=== PATIENT | female | born 1935 | race Caucasian/White ===

== ENCOUNTER 2018-02-28 04:33 | Inpatient (IN) | payer OTHER ==
[2018-02-28] VITALS (7 sets, daily range): BP systolic 139–168; BP diastolic 61–87
[~2018-02-28] VITALS: Ht 147.3 cm; Wt 66.7 kg
[~2018-02-28 04:33] MED LIST: ASPIRIN325 PO; AUGMENTIN 875875 MG PO; B12INJ SUBQ; CIPRO500 MG PO; FLAGYL500 MG PO; HYDROCODONE-AP1 EAC6 PO; LIPITOR10 MG PO; LISINOPRIL10 MG PO; MINOCYCLINE HC100 M2 PO; OMEPRAZOLE 20 M20 M1; OMEPRAZOLE20 M2 PO; PERIDEX15 ML MM; PRENATAL PO; SYNTHROID100 MC1 PO; TOPROL XL50 MG PO; ZOFRAN ODT4 MG PO; [UNRECOGNIZED DRUG - REMARK]
[2018-02-28 04:58] LABS: ABSOLUTE BASOPHILS 0.1 thou/uL (0.0-0.2); ABSOLUTE EOSINOPHILS 0.3 thou/uL (0.0-0.7); ABSOLUTE LYMPHOCYTES 2.4 thou/uL (0.8-5.3); ABSOLUTE MONOCYTES 0.6 thou/uL (0.0-1.2); ABSOLUTE NEUTROPHILS 3.2 thou/uL (1.6-8.1); BASOPHILS 1.2 %; HEMATOCRIT 40.7 % (37.0-47.0); HEMOGLOBIN 13.6 gm/dL (12.0-15.0); MCH 30.3 pg (26.0-34.0); MCHC 33.5 g/dL (28.0-37.0); MCV 90.4 fL (80.0-100.0); MONOCYTES 9.4 %; MPV 7.9 fl. (7.2-11.1); NUCLEATED RBCS 0 /100WBC; PLATELET COUNT* 196 thou/uL (150-400); POLYS 48.4 %; RDW-CV 14.4 % (10.5-14.5); WBC 6.6 thou/uL (4.0-11.0)
[2018-02-28 05:09] LABS: ANION GAP 9 mmol/L (7-16); BUN 20 mg/dL (7-18); CALCIUM 8.5 mg/dL (8.5-10.1); CHLORIDE 107 mmol/L (98-107); CO2 25 mmol/L (21-32); CREATININE 1.2 mg/dL (0.6-1.3); GLUCOSE 113 mg/dL (70-99); POTASSIUM 3.2 mmol/L (3.5-5.1); SODIUM 141 mmol/L (136-145)
[2018-02-28 05:10] LABS: INR 1.1; PROTIME 10.6 Seconds (9.20-11.50)
[2018-02-28] MEDS ORDERED: HYDROCHLOROTH12.5 M1 PO (05:10)
[2018-02-28 05:23] LABS: ALBUMIN 2.8 g/dL (3.4-5.0); ALKALINE PHOSPHATASE 110 U/L (46-116); LIPASE 196 U/L (73-393); NT-PRO BRAIN NAT PEPTIDE 238 pg/mL (<300); SGOT 17 U/L (15-37); SGPT 16 U/L (30-65); TOTAL BILIRUBIN 0.6 mg/dL (<0.1-1.0); TOTAL PROTEIN 6.9 g/dL (6.4-8.2); TROPONIN-I LEVEL <0.06 ng/mL (<0.06)
--- NOTE | 2018-02-28 07:00 | NUR ---
RECEIVED REPORT FROM ER, AMBULATED WITH STEADY GAIT FROM CART TO BED. PT VERY PLEASANT AND TALKATIVE. DENIES CHEST PAIN AT PRESENT TIME. O2 ON AT 2L/NC. TELEMETRY APPLIED.
--- NOTE | 2018-02-28 11:08 | NUR ---
ASSUMED PT CARE AT 0730, FULL ASSESMENT DONE CHARTED. PT A/O X4, DENIES PAIN, UP AD SUZY IN ROOM, VSS, SB ON THE MONITOR. ADMISSION DONE, REVIEWED HOME MEDS. PT SPOKE TO FARRUKH DOWNEY PLANNED FOR THIS AFTERNOON. PT UPDATED ON PLAN, NPO AT THIS TIME. WILL CONTINUE TO MONITOR.
[2018-02-28 11:24] LABS: ANION GAP 9 mmol/L (7-16); BUN 17 mg/dL (7-18); CHLORIDE 111 mmol/L (98-107); CHOLESTEROL 167 mg/dL (<200); CO2 23 mmol/L (21-32); CREATININE 0.9 mg/dL (0.6-1.3); GLUCOSE 94 mg/dL (70-99); HDL CHOLESTEROL 38 mg/dL (>40); LDL CHOLESTEROL 114 mg/dL (<100); POTASSIUM 3.8 mmol/L (3.5-5.1); SODIUM 143 mmol/L (136-145); TC:HDL 4.4 Ratio (Not establshd); TRIGLYCERIDE 76 mg/dL (<150); VLDL 15 mg/dL (<40)
[2018-02-28 11:33] LABS: SERUM ASSESSMENT Clear
--- NOTE | 2018-02-28 13:20 | NUR ---
INITIAL ASSESSMENT: Pt evaluated for d/c planning needs. Reviewed chart and spoke with nurse and pt. Pt is alert and oriented. Pt lives in house with adult daughter. 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 Pt has walker, w/c and crutches, but does not use. Pt has not had home health in the past. Pt plans on returning home on d/c from hospital. Will remain available to assist as needed.
--- NOTE | 2018-02-28 15:11 | 2DMMODE ---
[place] [address] 2 D/M-MODE ECHOCARDIOGRAM Name: DARY DE JESUS Room: [address] IN [facility]#: [id number] Admission: 02/28/18 Attend Phys: Chantell Ross, Discharge: Date of : 35 Date of Service: 02/28/18 1511 Report #: [id number] THIS REPORT FOR: //name// APPROVED REPORT Study performed: 02/28/2018 09:44:22 EXAM: Comprehensive 2D, Doppler, and color-flow Echocardiogram Patient Location: In-Patient Room #: [facility] Status: routine BSA: 1.62 HR: 55 bpm BP: 139/61 mmHg Rhythm: NSR Other Information Study Quality: Good Indications Murmur Chest Pain 2D Dimensions LVEF(%): 79.99 (>50%) IVSd: 10.37 (7-11mm) LVOT Diam: 18.31 (18-24mm) LVDd: 40.40 mm PWd: 9.06 (7-11mm) Ascending Ao: 29.85 (22-36mm) LVDs: 20.96 (25-40mm) Aortic Root: 30.11 mm Tapia's LVEF: 79.99 % Volumes Left Atrial Volume (Systole) LA ESV Index: 25.40 mL/m2 Aortic Valve AoV Peak Artis.: 1.63 m/s AO Peak Gr.: 10.57 mmHg LVOT Max P.90 mmHg AO Mean Gr.: 5.66 mmHg LVOT Mean P.47 mmHg LVOT Max V: 1.21 m/s AO V2 VTI: 40.06 cm LVOT Mean V: 0.70 m/s MELANI (VTI): 2.01 cm2 LVOT V1 VTI: 30.52 [place] [address] 2 D/M-MODE ECHOCARDIOGRAM Name: DARY DE JESUS Room: [address] IN [facility].#: [id number] Admission: 02/28/18 Attend Phys: Chantell Ross, Discharge: Date of : 35 Date of Service: 02/28/18 1511 Report #: [id number] E/A Ratio: 1.17 MV Decel. Time: 242.42 ms MV E Max Artis.: 0.95 m/s MV PHT: 70.30 ms MVA (PHT): 3.13 cm2 TDI E/Lateral E': 13.57 E/Medial E': 13.57 Medial E' Artis.: 0.07 m/s Lateral E' Artis.: 0.07 m/s Pulmonary Valve PV Peak Artis.: 1.00 m/s PV Peak Gr.: 4.02 mmHg Tricuspid Valve RAP Estimate: 5.00 mmHg TR Peak Gr.: 23.50 mmHg RVSP: 28.50 mmHg PA Pressure: 28.50 mmHg Left Ventricle The left ventricle is normal size. There is normal LV segmental wall motion. There is normal left ventricular wall thickness. Left ventricular systolic function is normal. The left ventricular ejection fraction is within the normal range. LVEF is 65%. The left ventricular diastolic function is normal. Right Ventricle The right ventricle is normal size. The right ventricular systolic function is normal. Atria The left atrium size is normal. The right atrium size is normal. Aortic Valve Mild aortic valve sclerosis. No aortic regurgitation is present. There is no aortic valvular stenosis. Mitral Valve The mitral valve is normal in structure. Mild mitral regurgitation. No evidence of mitral valve stenosis. Tricuspid Valve The tricuspid valve is normal in structure. Mild tricuspid regurgitation. [place] [address] 2 D/M-MODE ECHOCARDIOGRAM Name: DARY DE JESUS Room: [address] IN [facility]#: [id number] Admission: 02/28/18 Attend Phys: Chantell Ross, Discharge: Date of : 35 Date of Service: 02/28/18 1511 Report #: [id number] Pulmonic Valve The pulmonary valve is normal in structure. Trace pulmonic regurgitation. Great Vessels The aortic root is normal in size. IVC is normal in size and collapses with >50% inspiration Pericardium There is no pericardial effusion. <Conclusion> The left ventricle is normal size. There is normal left ventricular wall thickness. Left ventricular systolic function is normal. The left ventricular ejection fraction is within the normal range. LVEF is 65%. The left ventricular diastolic function is normal. The right ventricle is normal size. The left atrium size is normal. Mild aortic valve sclerosis. No aortic regurgitation is present. There is no aortic valvular stenosis. The mitral valve is normal in structure. Mild mitral regurgitation. The tricuspid valve is normal in structure. Mild tricuspid regurgitation. No pulmonary hypertension. IVC is normal in size and collapses with >50% inspiration There is no pericardial effusion. There is normal LV segmental wall motion. <ELECTRONICALLY SIGNED> By: Veto Alvarez MD, FACC 02/28/18 1511 151 151 Veto Alvarez MD, FACC /INF
--- NOTE | 2018-02-28 17:28 | EKG ---
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 : 1935 Requested By: Mark Conner Order Number: [id number] MD: John Renee Measurements Intervals [place] Rate: 134 P: DE: QRS: 13 QRSD: 93 T: -40 QT: 318 QTc: 475 Interpretive Statements Atrial fibrillation Abnormal R-wave progression, early transition Repolarization abnormality, consider ischemia Compared to ECG 12/13/2015 15:31:57 Early repolarization now present Sinus rhythm no longer present Electronically Signed On 02-28-2018 17:28:03 CDT by John Renee [email or web address] <ELECTRONICALLY SIGNED> By: John Renee MD, FACC 02/28/18 1728 0439 0439 John Renee MD, [facility] /EPI
--- NOTE | 2018-02-28 17:28 | EKG ---
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: : 1935 Requested By: Mark Conner Order Number: [id number] MD: John Renee Measurements Intervals [place] Rate: 65 P: 44 [place]: 159 QRS: -16 QRSD: 103 T: -3 QT: 428 QTc: 445 Interpretive Statements Sinus rhythm Atrial premature complex Abnormal R-wave progression, early transition Inferior infarct, old Compared to ECG 12/13/2015 15:31:57 Atrial premature complex(es) now present Myocardial infarct finding now present Electronically Signed On 02-28-2018 17:28:11 CDT by John Renee [email or web address] <ELECTRONICALLY SIGNED> By: John Renee MD, FAC 02/28/18 1728 0502 0502 John Renee MD, [facility] /EPI
--- NOTE | 2018-02-28 19:43 | NUR ---
UNABLE TO DO CARDIAC CATH TODAY, PT WILL BE NPO AFTER MIDNIGHT TONIGHT FOR CATH TOMORROW. REVIEWED PLAN WITH PT, ANSWERED QUESTIONS. PTS VSS, SB-SR ON THE MONITOR. USES CALL LIGHT APPROPRIALTY. UP AD SUZY IN ROOM. REPORT GIVEN TO AUDELIA SANDERS
[2018-03-01] VITALS (15 sets, daily range): BP systolic 144–187; BP diastolic 67–86
--- NOTE | 2018-03-01 05:54 | NUR ---
RECEIVED REPORT AND ASSUMED CARE AT 1900. VSS. CARDIAC MONITORING IN PLACE. ASSESSMENT COMPLETED CHARTED. PT DENIES ANY COMPLAINTS OF PAIN. DISCUSSED PLAN OF CARE WITH PT, VERBALIZED UNDERSTANDING. PT TO BE NPO AFTER MIDNIGHT FOR CATH PROCEEDURE. PT UP AD SUZY IN ROOM, ON RA. PT REPORTED PRESSURE IN HER CHEST, EKG OBTAINED. PT ROOM WAS VERY WARM AND HUMID. THERMOSTAT CHANGED, PT REPORTED PRESSURE IN CHEST GONE WITH CHANGE IN TEMP. BED LOCKED IN LOWEST POSITION, CALL LIGHT WITHIN REACH. HOURLY ROUNDING COMPLETED AND ALL NEEDS MET. WILL CONTINUE TO MONITOR
[2018-03-01 06:13] LABS: CALCIUM 8.5 mg/dL (8.5-10.1); CREATININE 1.1 mg/dL (0.6-1.3); POTASSIUM 4.7 mmol/L (3.5-5.1)
--- NOTE | 2018-03-01 17:30 | EKG ---
[place] [address] ELECTROCARDIOGRAM REPORT Name: DARY DE JESUS Room: [address] ADM IN .R.#: [id number] Admission: 02/28/18 Attend Phys: Chantell Ross MD Discharge: Date of : 35 Report #: [id number] THIS REPORT FOR: //name// [facility] Test Date: 2018-02-28 Test Time: 23:17:26 Pat Name: DARY DE JESUS Department: Room: [address] Gender: F Wire Weaver: : 1935 Requested By: Chantell Ross Order Number: [id number] Reading MD: Veto Alvarez Measurements Intervals [place] Rate: 78 P: 45 [place]: 183 QRS: -1 QRSD: 83 T: 4 QT: 410 QTc: 468 Interpretive Statements Sinus rhythm Abnormal R-wave progression, early transition Nonspecific T abnormalities, anterior leads Compared to ECG 02/28/2018 05:02:29 T-wave abnormality now present Atrial premature complex(es) no longer present Myocardial infarct finding no longer present Electronically Signed On 03-01-2018 17:30:50 CDT by Veot Alvarez [email or web address] <ELECTRONICALLY SIGNED> By: Veto Alvarez MD, [facility] 03/01/18 1730 2317 2317 Veto Alvarez MD, [facility] /EPI
--- NOTE | 2018-03-01 17:30 | EKG ---
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: : 1935 Requested By: Chantell Ross Order Number: [id number] Reading MD: Veto Alvarez Measurements Intervals [place] Rate: 76 P: 50 [place]: 186 QRS: 9 QRSD: 76 T: 9 QT: 404 QTc: 455 Interpretive Statements Sinus rhythm Abnormal R-wave progression, early transition Nonspecific T abnormalities, anterior leads Compared to ECG 02/28/2018 05:02:29 T-wave abnormality now present Atrial premature complex(es) no longer present Myocardial infarct finding no longer present Electronically Signed On 03-01-2018 17:30:42 CDT by Veto Alvarez [email or web address] <ELECTRONICALLY SIGNED> By: Veto Alvarez MD, [facility] 03/01/18 1730 2314 2314 Veto Alvarez MD, [facility] /EPI
--- NOTE | 2018-03-01 17:40 | EKG ---
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: : 1935 Requested By: Veto Alvarez Order Number: [id number] Reading MD: Veto Alvarez Measurements Intervals [place] Rate: 48 P: -3 [place]: 146 QRS: 1 QRSD: 165 T: 10 QT: 506 QTc: 453 Interpretive Statements Sinus bradycardia Probable left ventricular hypertrophy Compared to ECG 02/28/2018 05:02:29 Sinus rate has decreased Atrial premature complex(es) no longer present Myocardial infarct finding no longer present Electronically Signed On 03-01-2018 17:40:35 CDT by Veto Alvarez [email or web address] <ELECTRONICALLY SIGNED> By: Veto Alvarez MD, [facility] 03/01/18 1740 1429 1429 Veto Alvarez MD, [facility] /EPI
--- NOTE | 2018-03-01 18:45 | NUR ---
ASSUMED CARE OF PT AT 0730. PT REMAINS A&O CALM AND COOPERATIVE. PT VSS AND TRACING SB ON THE MONITOR. PT HAS HAD NO C/O PAIN TODAY. PT TAKEN TO THE SENIOR SOFTWARE ENGINEERING MANAGER AND RETURNED AT 1515 AND HAS BEEN STABLE WITHOUT ANY S/S OF DISTRESS. PT VERBALIZED UNDERSTANDING OF DC INSTRUCTIONS AND THAT SHE IS TO REMAIN FLAT UNTIL AT LEAST 2015 TONIGHT. PT HAS A GOOD APPETITE AND ATE GREATER THAN 75% OF HER DINNER. POST CATH VITALS WERE OBTAINED AND DOCUMENTED. NURSING WILL CONTINUE TO MONITOR.
[2018-03-02] VITALS: BP 178/67
[2018-03-02 04:00] VITALS: BP 136/50
--- NOTE | 2018-03-02 05:38 | NUR ---
RECEIVED REPORT AND ASSUMED CARE AT 1900. BP ELEVATED, OTHERWISE VSS. CARDIAC MONITORING IN PLACE. ASSESSMENT COMPLETED CHARTED. PT DENIES ANY COMPLAINTS OF PAIN. DISCUSSED PLAN OF CARE WITH PT, VERBALIZED UNDERSTANDING. PT POST CATH, BEDREST UNTIL 2014. SITE R GROIN, SOFT, INTACT DRESSING. PT ON RA. AFTER BEDREST PT UP AD SUZY IN ROOM. HOURLY ROUNDING COMPLETED, ALL NEED MET. CALL LIGHT WITHIN REACH, BED LOCKED IN LOWEST POSITION. WILL CONTINUE TO MONITOR FOR REMAINDER OF THE SHIFT
[2018-03-02 07:32] VITALS: BP 178/68
[2018-03-02 07:43] LABS: HEMATOCRIT 37.8 % (37.0-47.0); HEMOGLOBIN 12.7 gm/dL (12.0-15.0); MCH 30.4 pg (26.0-34.0); MCHC 33.6 g/dL (28.0-37.0); MCV 90.5 fL (80.0-100.0); MPV 8.2 fl. (7.2-11.1); RBC 4.18 mil/uL (4.20-5.00); RDW-CV 14.2 % (10.5-14.5); WBC 6.8 thou/uL (4.0-11.0)
[2018-03-02 08:38] LABS: ALBUMIN 2.9 g/dL (3.4-5.0); CALCIUM 8.2 mg/dL (8.5-10.1); POTASSIUM 4.2 mmol/L (3.5-5.1); TOTAL BILIRUBIN 0.8 mg/dL (<0.1-1.0); TOTAL PROTEIN 6.1 g/dL (6.4-8.2)
[2018-03-02 08:49] LABS: TROPONIN-I LEVEL 7.36 ng/mL (<0.06)
[2018-03-02] MEDS ORDERED: BRILINTA90 MG PO (09:54)
[2018-03-02] MEDS ORDERED: ATORVASTATIN CA20 MG PO (09:56)
[2018-03-02 10:23] VITALS: BP 178/68
--- NOTE | 2018-03-02 11:04 | EKG ---
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 : 1935 Requested By: Veto Alvarez Order Number: [id number] Reading MD: Roni Maria Measurements Intervals [place] Rate: 55 P: -3 [place]: 141 QRS: 0 QRSD: 91 T: 9 QT: 471 QTc: 451 Interpretive Statements Sinus rhythm Abnormal R-wave progression, early transition Nonspecific T abnormalities, anterior leads Compared to ECG 03/01/2018 14:29:16 T-wave abnormality now present Sinus bradycardia no longer present Electronically Signed On 03-02-2018 11:04:05 CDT by Roni Maria [email or web address] <ELECTRONICALLY SIGNED> By: Roni Maria MD, [facility] 03/02/18 1104 1016 1016 Roni Maria MD, [facility] /EPI
--- NOTE | 2018-03-02 12:27 | NUR ---
ASSUMED CARE OF PT AT 0730. PT VSS AND NO C/O PAIN OR DISTRESS. CATH SITE LOOKS UNREMARKABLE. PT VERBALIZED UNDERSTANDING OF DC INSTRUCTIONS. ALL PERSONAL BELONGINGS AND PRESCRIPTIONS. PT A&O X4, SKIN W/D/I OTHER THAN CATH SITE. PT DISCHARGED WITH SON PER PRIVATE VEHICLE.
--- NOTE | 2018-03-07 16:00 | CARD ---
[address] [address] CARDIAC CATH REPORT Name: DARY DE JESUS Room: [address]#: [id number] Admission: 02/28/18 Attend Phys: Chantell Ross MD Discharge: 03/02/18 Date of : 35 Report #: [id number] THIS REPORT FOR: //name// APPROVED REPORT Study performed: 03/01/2018 11:08:07 Patient Details Patient Status: Out-Patient Room #: The patient is a 82 year-old female Event Personnel Veto Alvarez Flex O Writer Operator, Eli Hernandez RN Mail Carrier Technician, Chary Adhikari Monitor, Cristina Bowers RTR Scrub Procedures Performed Art Access - R femoral artery* Left Heart Cath w/or w/o Coronaries [id number] [facility] DENISE Place w/wo Plasty Single RCA [id number] Indication Unstable angina Risk Factors Hypercholesterolemia, Hypertension Admission/Lab Medications/Medications given during procedure Aspirin, Platelet Aff. Inhib. Procedure Narrative The patient was brought electively to the Cardiac Catheterization Laboratory and was prepped and draped in a sterile manner. The right femoral was infiltrated with 2% Lidocaine subcutaneous anesthesia. A [place] 6 FR sheath was inserted into the right femoral artery. Coronary angiography was performed using coronary diagnostic catheters. The right coronary system was accessed and visualized with a 3DRC 6fr catheter. The left coronary system was accessed and visualized with a JL 4 6fr catheter. The left ventricle was accessed and visualized with a 6fr Angled Pigtail catheter. Left ventricular/Aortic Valve gradient assessed via catheter pullback. Left ventriculogram was performed in LAMBERT projection. Pre-demployment femoral angiogram was performed . Closure device was deployed with a 6 Fr Angioseal STS 6Fr. The patient tolerated the procedure well and there were no complications associated with the procedure. [place] [address] CARDIAC CATH REPORT Name: DARY DE JESUS Room: [address]#: [id number] Admission: 02/28/18 Attend Phys: Chantell Ross MD Discharge: 03/02/18 Date of : 35 Report #: [id number] Intraoperative Conscious Sedation Sedation start time: 11:56 Case end Time: 13:13 Fentanyl 50 mcg Versed 3 mg Fluoro Time: 33.8 minutes Dose: DAP 611315 cGycm2 2280.08 mGy Contrast Type and Amount: Visipaque 270 ml Coronary Angiography The patient's coronary anatomy is right dominant. Diagnostic Cath Left Main 0% narrowing LAD 80% irregular proximal stenosis with tandem 80% mid vessel stenosis Circumflex 30% proximal narrowing Right Coronary 90% ostial stenosis IVUS Intravascular Ultrasound was performed on the proximal right coronary artery vessel. IVUS Findings Trek RX 3.0 X 12 Hemodynamics The aortic pressure is 133/49 mmHg with a mean of mmHg. The left ventricular pressure is 144/0 mmHg with a mean of mmHg. The left ventricular end diastolic pressure is 6 mmHg. Pullback from the left ventricle to the aorta revealed no gradient across the aortic valve. PCI Technique Lesion Anticoagulation was achieved with Angiomax. Percutaneous coronary intervention was performed on the proximal right coronary artery. The lesion stenosis prior to intervention was 90% with HAYES 3 flow. A 6FR IM SH Guide Catheter was used to engage the ostium. A IG: ProwaterFlex 180CM Interventional Guidewire was used to cross the lesion. BALLOON DILATION A Balloon catheter AngioSculpt PTCA 3.0 X 10mm was inserted and inflated up to 10atm [place] 12[place]. [place] [address] CARDIAC CATH REPORT Name: DARY DE JESUS Room: [address]#: [id number] Admission: 02/28/18 Attend Phys: Chantell Ross MD Discharge: 03/02/18 Date of : 35 Report #: [id number] STENT DEPLOYMENT A drug-eluting stent Xience Alpine RX 3.0X15 was inserted and inflated up to 16atm for 15seconds. POST STENT DEPLOYMENT BALLOON DILATION A Balloon catheter NC Trek RX 3.25X8 was inserted and inflated up to 18atm for 10seconds. Final angiography reveals 10 % stenosis with HAYES 3 flow. COMMENTS Angioscope atherectomy was performed on the ostium of the right coronary artery prior to stent deployment PCI Technique Lesion Percutaneous coronary intervention was performed on the proximal right coronary artery. BALLOON DILATION A Balloon catheter Trek RX 3.0 X 12 was inserted and inflated up to 10.00atm for 10seconds. Additional Inflation: 6.00atm for 10seconds. Additional Inflation: 4.00atm for 9seconds. PCI Technique Lesion 2 Percutaneous coronary intervention was performed on the proximal right coronary artery. Balloon Dilation A Balloon catheter AngioSculpt PTCA 3.0 X 10mm was inserted and inflated up to 10atm for 19seconds. Additional Inflation: 12atm for 30seconds. Additional Inflation: 10atm for 11seconds. 12 YONIS X 28 SECONDS 12 YONIS X 17 SECONDS 12 YONIS X 28 SECONDS PCI Technique Lesion Percutaneous coronary intervention was performed on the proximal right coronary artery. BALLOON DILATION A Balloon catheter NC Euphora 3.0x12 was inserted and inflated up to 14.00atm for 15seconds. Additional Inflation: 18.00atm for 28seconds. STENT DEPLOYMENT A drug-eluting stent Xience Alpine RX 3.0X15 was inserted and inflated up to 16.00atm for 18seconds. [place] [address] CARDIAC CATH REPORT Name: BRIGETTEMARIA LUZJOHNDARY L Room: [address]#: [id number] Admission: 02/28/18 Attend Phys: Chantell Ross MD Discharge: 03/02/18 Date of : 35 Report #: [id number] POST STENT DEPLOYMENT BALLOON DILATION A Balloon catheter NC Trek RX 3.25X8 was inserted and inflated up to 15.00atm for 12seconds. Additional Inflation: 15.00atm for 12seconds. Conclusion #1 significant coronary artery disease characterized by the following: A 80% irregular proximal and tandem 80% mid LAD stenosis, B 30% narrowing of the proximal portion of the nondominant circumflex C large dominant right coronary artery with 90% ostial narrowing #2 normal left ventricular systolic function, estimated ejection fraction being 60% #3 normal left-sided hemodynamics study #4 successful percutaneous coronary intervention with angioplasty atherotomy/atherectomy and deployment of a drug-eluting stent at the site of 90% ostial right coronary stenosis with 10% residual narrowing and HAYES-3 flow the distal vessel Recommendations Cardiac Risk Reduction Program Aggressive Medical Therapy Medications Administered Aspirin (any) Ticagrelor Diagnostic Cath Approved by: Veto Alvarez MD Date/Time: 03/07/2018 15:58:04 <ELECTRONICALLY SIGNED> By: Veto Alvarez MD, FACC 03/07/18 1559 1559 1559Veto Alvarez MD, FACC /INF
[2018-03-13] MEDS ORDERED: RANEXA500 MG PO (13:02)
== END 2018-03-02 12:27 | disposition home or self-care (01) | DRG 247 ==
LOC: M.ERS 04:33 → M.TBA-ER 05:41 → M.2W 05:41
PROVIDERS: Emergency Medicine; Internal Medicine; Nurse Practitioner Family; ADMIT Internal Medicine
PROC: B211YZZ Fluoroscopy of Multiple Coronary Arteries using Other Contrast (ICD-10-PCS; principal; 2018-03-01)
PROC: 4A023N7 Measurement of Cardiac Sampling and Pressure, Left Heart, Percutaneous Approach (ICD-10-PCS; principal; 2018-03-01)
PROC: 027034Z Dilation of Coronary Artery, One Artery with Drug-eluting Intraluminal Device, Percutaneous Approach (ICD-10-PCS; principal; 2018-03-01)
DX: I25.119 Atherosclerotic heart disease of native coronary artery with unspecified angina pectoris (principal); E44.0 Moderate protein-calorie malnutrition; I13.0 Hypertensive heart and chronic kidney disease with heart failure and stage 1 through stage 4 chronic kidney disease, or unspecified chronic kidney disease; I48.0 Paroxysmal atrial fibrillation; I43 Cardiomyopathy in diseases classified elsewhere; E78.5 Hyperlipidemia, unspecified; R01.1 Cardiac murmur, unspecified; N18.2 Chronic kidney disease, stage 2 (mild); K21.9 Gastro-esophageal reflux disease without esophagitis; E03.9 Hypothyroidism, unspecified; Z79.82 Long term (current) use of aspirin; Z79.899 Other long term (current) drug therapy; Z90.49 Acquired absence of other specified parts of digestive tract; Z86.73 Personal history of transient ischemic attack (TIA), and cerebral infarction without residual deficits; Z82.49 Family history of ischemic heart disease and other diseases of the circulatory system; Z68.30 Body mass index [BMI] 30.0-30.9, adult

== ENCOUNTER 2018-08-22 11:10 | Inpatient (IN) | payer OTHER ==
[~2018-08-22] VITALS: Ht 147.3 cm; Wt 62.5 kg
[~2018-08-22 11:10] MED LIST changes: +ATORVASTATIN CA20 MG PO; +BRILINTA90 MG PO; +HYDROCHLOROTH12.5 M1 PO; +RANEXA500 MG PO
[2018-08-22 11:19] VITALS: BP 168/84
[2018-08-22] MEDS ORDERED: ASPIR 8181 MG PO (11:27)
[2018-08-22] MEDS ORDERED: PLAVIX 75 MG TA75 M1 PO (11:27)
[2018-08-22] MEDS ORDERED: IMDUR 30 MG TAB30 M1 PO (11:28)
[2018-08-22 11:55] LABS: ABSOLUTE BASOPHILS 0.1 thou/uL (0.0-0.2); ABSOLUTE EOSINOPHILS 0.3 thou/uL (0.0-0.7); ABSOLUTE LYMPHOCYTES 1.4 thou/uL (0.8-5.3); ABSOLUTE MONOCYTES 0.6 thou/uL (0.0-1.2); ABSOLUTE NEUTROPHILS 5.5 thou/uL (1.6-8.1); BASOPHILS 0.7 %; EOSINOPHILS 3.4 %; HEMATOCRIT 36.7 % (37.0-47.0); HEMOGLOBIN 12.2 gm/dL (12.0-15.0); LYMPHOCYTES 17.8 %; MCH 28.5 pg (26.0-34.0); MCHC 33.2 g/dL (28.0-37.0); MCV 85.8 fL (80.0-100.0); MONOCYTES 7.8 %; MPV 8.4 fl. (7.2-11.1); NUCLEATED RBCS 0 /100WBC; PLATELET COUNT* 173 thou/uL (150-400); POLYS 70.3 %; RBC 4.28 mil/uL (4.20-5.00); RDW-CV 17.4 % (10.5-14.5); WBC 7.8 thou/uL (4.0-11.0)
[2018-08-22 12:02] LABS: CALCIUM 8.3 mg/dL (8.5-10.1); CREATININE 1.1 mg/dL (0.6-1.3); POTASSIUM 3.1 mmol/L (3.5-5.1)
[2018-08-22 12:04] LABS: INR 1.1; PROTIME 11.2 Seconds (9.20-11.50)
[2018-08-22 12:09] LABS: ALBUMIN 2.3 g/dL (3.4-5.0); TOTAL BILIRUBIN 1.3 mg/dL (<0.1-1.0); TOTAL PROTEIN 5.9 g/dL (6.4-8.2)
[2018-08-22 13:49] LABS: URINE BILIRUBIN NEGATIVE (Negative); URINE BLOOD 1+ (Negative); URINE CLARITY CLEAR; URINE COLOR YELLOW; URINE GLUCOSE-RANDOM NEGATIVE (Negative); URINE KETONES NEGATIVE (Negative); URINE LEUKOCYTES-REFLEX NEGATIVE (Negative); URINE NITRITE-REFLEX NEGATIVE (Negative); URINE PROTEIN NEGATIVE (Negative); URINE SPECIFIC GRAVITY <= 1.005 (1.005-1.030); URINE UROBILINOGEN 0.2 E.U./dl (0.2-1.0)
[2018-08-22 14:18] LABS: BACTERIA-REFLEX None Seen /HPF (None Seen); CASTS None Seen /LPF (None Seen); CRYSTALS None Seen /LPF (None Seen); SQUAMOUS >10 Many /LPF (0-3); URINE RBC None Seen /HPF (0-2); URINE WBC-REFLEX None Seen /HPF (0-5)
[2018-08-22 15:03] VITALS: BP 183/78
--- NOTE | 2018-08-22 15:05 | EKG ---
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[place] : 1935 Requested By: Mark Conner Order Number: [id number] MD: Odell Bell Measurements Intervals [place] Rate: 68 P: -5 [place]: 116 QRS: 24 QRSD: 80 T: 21 QT: 415 QTc: 442 Interpretive Statements Sinus rhythm Borderline short [place] interval Abnormal R-wave progression, early transition Nonspecific repol abnormality, diffuse leads Compared to ECG 03/14/2018 08:13:46 Atrial premature complex(es) no longer present Electronically Signed On 08-22-2018 15:05:21 TERRAZZO POLISHER by Odell Bell [email or web address] <ELECTRONICALLY SIGNED> By: Odell Bell MD, [facility] 08/22/18 1505 1155 1155 Odell Bell MD, [facility] /EPI
[2018-08-22 15:15] VITALS: BP 185/74
--- NOTE | 2018-08-22 17:00 | NUR ---
PATIENT ADMITTED TO ROOM 305 FROM ER. ALERT AND ORIENTED X 4. SPOKE WITH DR. TRENT GONGORA FOR CLEAR LIQUIDS. IVF AND SCHED ABX INFUSING. UP AD SUZY, STEADY GAIT NOTED. NO SKIN BREAKDOWN NOTED. ORIENTED TO CALL LIGHT. CALL LIGHT WITHIN REACH, WILL CONTINUE TO MONITOR.
[2018-08-22 20:00] VITALS: BP 151/66
--- NOTE | 2018-08-23 04:16 | NUR ---
PATIENT RESTED THROUGH THE NIGHT. NO COMPLAINTS OF PAIN NOTED. MILD NAUSEA IT COMPLIANCE ANALYST AND HOURLY ROUNDING COMPLETED CHARTED.
[2018-08-23 04:52] LABS: HEMATOCRIT 29.3 % (37.0-47.0); MCH 29.4 pg (26.0-34.0); MCHC 34.2 g/dL (28.0-37.0); MCV 85.8 fL (80.0-100.0); MPV 8.5 fl. (7.2-11.1); RBC 3.42 mil/uL (4.20-5.00); RDW-CV 17.1 % (10.5-14.5); WBC 6.4 thou/uL (4.0-11.0)
[2018-08-23 05:31] LABS: ALBUMIN 1.7 g/dL (3.4-5.0); CALCIUM 7.3 mg/dL (8.5-10.1); CREATININE 0.8 mg/dL (0.6-1.3); MAGNESIUM 1.6 mg/dL (1.8-2.4); POTASSIUM 4.5 mmol/L (3.5-5.1); TOTAL BILIRUBIN 0.8 mg/dL (<0.1-1.0); TOTAL PROTEIN 4.5 g/dL (6.4-8.2)
[2018-08-23 07:50] VITALS: BP 145/68
--- NOTE | 2018-08-23 14:42 | NUR ---
INITIAL ASSESSMENT: CM SPK W/PT TO DISCUSS D/C PLANNING NEEDS, HOME SITUATION, & TO INFORM OF THE ROLE OF CM. PT A&OX4. PT PERFOMRM ADL INDEPENDENTLY. PT EMPLOYEED C/[employer] FOR [employer]. LIVES IN HOME W/DTR. PT HAS NO DME. NO HX W/HH NOR SNF. CM WILL REMAIN AVAIL TO ASSIST & FOLLOW PRN.
[2018-08-23 16:00] VITALS: BP 103/73
--- NOTE | 2018-08-23 16:08 | NUR ---
PATIENT IV LEAKING THIS AM. INFUSION STUCK PATIENT MULTIPLE TIMES WITH NO SUCCESS. ORDERS RECEIVED FOR PICC LINE. PICC LINE TO RIGHT UPPER ARM. IVF INFUSING, SCHED ABX. GI HERE TO SEE PATIENT WHILE PATIENT WAS DOWN IN IR, PER DR. RICO WANTED CALL TO NOTIFY THAT PATIENT WAS BACK FROM PICC PLACMENT. ATTEMPTED TWICE TO CALL OFFICE TO NOTIFY DR. RICO OF PATIENT RETURN BUT NO RESPONSE. PATIENT TOLERATING CLEAR LIQUID DIET.
[2018-08-23 20:00] VITALS: BP 162/72
--- NOTE | 2018-08-24 05:10 | NUR ---
Assumed patient care at 1900. patient alert and oriented times four. PICC in place and patent. Patient cooperative with all cares. No complaints of pain or discomfort noted. tolerating diet. armoured corps officer and hourly rounding completed as charted.
[2018-08-24 06:38] LABS: HEMATOCRIT 27.2 % (37.0-47.0); HEMOGLOBIN 9.2 gm/dL (12.0-15.0); MCH 28.9 pg (26.0-34.0); MCHC 33.9 g/dL (28.0-37.0); MCV 85.4 fL (80.0-100.0); RBC 3.18 mil/uL (4.20-5.00); RDW-CV 17.3 % (10.5-14.5); WBC 4.8 thou/uL (4.0-11.0)
[2018-08-24 06:47] LABS: CALCIUM 7.5 mg/dL (8.5-10.1); MAGNESIUM 1.6 mg/dL (1.8-2.4); POTASSIUM 3.8 mmol/L (3.5-5.1)
[2018-08-24 07:40] VITALS: BP 157/70
[2018-08-24] MEDS ORDERED: PLAVIX 75 MG TA75 M1 PO (11:15)
[2018-08-24] MEDS ORDERED: FLAGYL500 M1 PO (11:15)
[2018-08-24] MEDS ORDERED: CIPRO500 MG PO (11:15)
[2018-08-24 12:00] VITALS: BP 157/70
[2018-08-24 13:02] VITALS: BP 157/70
--- NOTE | 2018-08-24 13:03 | NUR ---
PATIENT IS ALERT AND ORIENTED TODAY VERY PLEASANT. UP AD SUZY IN ROOM VITAL SIGNS STABLE ON ROOM AIR. SOME MILD COMPLAINTS OF PAIN IN ABDOMEN DENIES NEED FOR MEDICATIONS. PATIENT IS BEING DISCHARGED TO HOME. DISCHARGE INSTRUCTIONS AND PRESCRIPTINS GIVEN TO PATIENT. PATIENT LEFT VIA WHEEL CHAIR TO HOME.
== END 2018-08-24 13:06 | disposition home or self-care (01) | DRG 378 ==
LOC: M.ERS 11:10 → M.3W 13:45 → M.TBA-ER 13:45 → M.3W 15:15
PROVIDERS: Emergency Medicine; ADMIT Internal Medicine
PROC: 02HV33Z Insertion of Infusion Device into Superior Vena Cava, Percutaneous Approach (ICD-10-PCS; principal; 2018-08-23)
DX: K92.2 Gastrointestinal hemorrhage, unspecified (principal); I77.4 Celiac artery compression syndrome; K55.9 Vascular disorder of intestine, unspecified; N18.2 Chronic kidney disease, stage 2 (mild); E03.9 Hypothyroidism, unspecified; K21.9 Gastro-esophageal reflux disease without esophagitis; I73.9 Peripheral vascular disease, unspecified; I70.1 Atherosclerosis of renal artery; Z90.49 Acquired absence of other specified parts of digestive tract; Z86.73 Personal history of transient ischemic attack (TIA), and cerebral infarction without residual deficits; Z82.49 Family history of ischemic heart disease and other diseases of the circulatory system; Z95.820 Peripheral vascular angioplasty status with implants and grafts; Z79.82 Long term (current) use of aspirin; Z79.899 Other long term (current) drug therapy

== ENCOUNTER → 2018-09-25 | Outpatient (CLI) | payer OTHER ==
[~2018-09-25] MED LIST changes: +ASPIR 8181 MG PO; +FLAGYL500 M1 PO; +IMDUR 30 MG TAB30 M1 PO; +PLAVIX 75 MG TA75 M1 PO
--- NOTE | 2018-09-25 13:04 | 2DMMODE ---
[place] [address] 2 D/M-MODE ECHOCARDIOGRAM Name: BRIGETTEMARIA LUZDARY L Room: [facility]#: [id number] Admission: 09/25/18 Attend Phys: Isidra Torrez Discharge: Date of : 35 Date of Service: 09/25/18 1303 Report #: [id number] THIS REPORT FOR: //name// APPROVED REPORT Study performed: 09/25/2018 08:12:47 EXAM: Comprehensive 2D, Doppler, and color-flow Echocardiogram Patient Location: Out-Patient Status: routine BSA: 1.52 HR: 64 bpm BP: 139/61 mmHg Other Information Study Quality: Good Indications CAD Hypertension/HDD 2D Dimensions IVSd: 11.78 (7-11mm) LVOT Diam: 19.80 (18-24mm) LVDd: 36.13 mm PWd: 9.90 (7-11mm) Ascending Ao: 27.27 (22-36mm) LVDs: 19.56 (25-40mm) Aortic Root: 28.31 mm Volumes Left Atrial Volume (Systole) LA ESV Index: 24.40 mL/m2 Aortic Valve AoV Peak Artis.: 1.40 m/s AO Peak Gr.: 7.83 mmHg LVOT Max P.10 mmHg AO Mean Gr.: 4.39 mmHg LVOT Mean P.28 mmHg LVOT Max V: 0.88 m/s AO V2 VTI: 35.44 cm LVOT Mean V: 0.51 m/s MELANI (VTI): 2.26 cm2 LVOT V1 VTI: 26.05 cm Mitral Valve E/A Ratio: 1.83 MV Decel. Time: 215.48 ms MV E Max Artis.: 1.14 m/[place] [address] 2 D/M-MODE ECHOCARDIOGRAM Name: DARY DE JESUS Room: [facility]#: [id number] Admission: 09/25/18 Attend Phys: Isidra Torrez Discharge: Date of : 35 Date of Service: 09/25/18 1303 Report #: [id number] MV PHT: 62.49 ms MVA (PHT): 3.52 cm2 TDI E/Lateral E': 16.29 E/Medial E': 10.36 Medial E' Artis.: 0.11 m/s Lateral E' Artis.: 0.07 m/s Pulmonary Valve PV Peak Artis.: 0.89 m/s PV Peak Gr.: 3.16 mmHg Tricuspid Valve RAP Estimate: 5.00 mmHg TR Peak Gr.: 32.63 mmHg RVSP: 37.63 mmHg PA Pressure: 37.63 mmHg Left Ventricle The left ventricle is normal size. There is normal LV segmental wall motion. There is normal left ventricular wall thickness. Left ventricular systolic function is normal. The left ventricular ejection fraction is within the normal range. LVEF is 60-65%. The left ventricular diastolic function is normal. Right Ventricle The right ventricle is normal size. The right ventricular systolic function is normal. Atria The left atrium size is normal. The right atrium size is normal. Aortic Valve Aortic valve is mildly calcified. No aortic regurgitation is present. There is no aortic valvular stenosis. Mitral Valve The mitral valve is normal in structure. Mild mitral regurgitation. No evidence of mitral valve stenosis. Tricuspid Valve The tricuspid valve is normal in structure. Mild tricuspid regurgitation. Pulmonic Valve The pulmonary valve is normal in structure. [place] [address] 2 D/M-MODE ECHOCARDIOGRAM Name: DARY DE JESUS Smita Room: [facility]#: [id number] Admission: 09/25/18 Attend Phys: Isidra Torrez Discharge: Date of : 35 Date of Service: 09/25/18 1303 Report #: [id number] Great Vessels The aortic root is normal in size. IVC is normal in size and collapses >50% with inspiration. Pericardium There is no pericardial effusion. <Conclusion> The left ventricle is normal size. There is normal left ventricular wall thickness. Left ventricular systolic function is normal. The left ventricular ejection fraction is within the normal range. LVEF is 60-65%. The left ventricular diastolic function is normal. The right ventricle is normal size. The left atrium size is normal. Aortic valve is mildly calcified. No aortic regurgitation is present. There is no aortic valvular stenosis. The mitral valve is normal in structure. Mild mitral regurgitation. The tricuspid valve is normal in structure. Mild tricuspid regurgitation. IVC is normal in size and collapses >50% with inspiration. There is no pericardial effusion. There is normal LV segmental wall motion. <ELECTRONICALLY SIGNED> By: Veto Alvarez MD, FACC 09/25/18 1303 1303 1303 Veto Alvarez MD, FACC /INF
== END ==
LOC: M.CRD 07:50
DX: I08.0 Rheumatic disorders of both mitral and aortic valves (principal); I25.10 Atherosclerotic heart disease of native coronary artery without angina pectoris; I10 Essential (primary) hypertension

== ENCOUNTER 2018-10-07 09:00 | Inpatient (IN) | payer OTHER ==
[~2018-10-07] VITALS: Ht 121.9 cm; Wt 60.8 kg
[2018-10-07] VITALS (15 sets, daily range): BP systolic 110–211; BP diastolic 48–97
[2018-10-07 09:20] LABS: ABSOLUTE EOSINOPHILS 0.1 thou/uL (0.0-0.7); ABSOLUTE LYMPHOCYTES 1.2 thou/uL (0.8-5.3); ABSOLUTE MONOCYTES 0.7 thou/uL (0.0-1.2); ABSOLUTE NEUTROPHILS 6.3 thou/uL (1.6-8.1); BASOPHILS 0.3 %; EOSINOPHILS 1.2 %; HEMATOCRIT 38.1 % (37.0-47.0); HEMOGLOBIN 12.7 gm/dL (12.0-15.0); LYMPHOCYTES 14.6 %; MCH 28.3 pg (26.0-34.0); MCHC 33.3 g/dL (28.0-37.0); MCV 85.2 fL (80.0-100.0); MONOCYTES 8.1 %; MPV 8.1 fl. (7.2-11.1); NUCLEATED RBCS 0 /100WBC; PLATELET COUNT* 193 thou/uL (150-400); POLYS 75.8 %; RBC 4.47 mil/uL (4.20-5.00); RDW-CV 16.8 % (10.5-14.5); WBC 8.4 thou/uL (4.0-11.0)
[2018-10-07 09:36] LABS: APTT 25.8 Seconds (25.0-31.3); INR 1.1; PROTIME 10.9 Seconds (9.20-11.50)
[2018-10-07 09:38] LABS: CALCIUM 8.8 mg/dL (8.5-10.1); CREATININE 1.1 mg/dL (0.6-1.3); POTASSIUM 3.2 mmol/L (3.5-5.1)
[2018-10-07 09:39] LABS: TROPONIN-I LEVEL 18.15 ng/mL (<0.06)
[2018-10-07 09:43] LABS: ALBUMIN 2.9 g/dL (3.4-5.0); CK-MB MASS 58.2 ng/mL (<0.5-3.6); MAGNESIUM 1.8 mg/dL (1.8-2.4); TOTAL PROTEIN 6.7 g/dL (6.4-8.2)
--- NOTE | 2018-10-07 18:05 | NUR ---
ASSUMED PT CARE REPORT RECEIVED FROM CARDIAC CATH NURSE. PT ARRIVED ON TELE FLOOR AT 1300 AOX4 NAUSEOUS, SR ON TREATER. ON RA AND SATURATION IS 98%. PT ON BEDREST FOR 6 HOURS. R GROIN HAD MODERATE AMOUNT OF BLOOD . DRESSING WAS CHANGED AND LIDOCAIN /EPI WAS GIVEN PER CORPORATE BOND TRADER. VS TO BE MONITORED Q 15 MIN THEN Q30 MIN. VS WERE COLLECTED SEE CHART. ZOFRAN GIVEN FOR NAUSEA. EKG PERFOREMED ORDERED. SEE CHART. PT COMPAINS OF CHEST PAIN LEVEL 9 NITRO,MORPHINE GIVEN. DENIES SOA. BP IN THE 170S HYDRALIZINE GIVEN S WELL. BP DROPPED OT 110/52 AFTER DOSE OF HYDRALIZINE. IV FLUID INFUSING IN RIGHT AC AT 100 PER HOUR. GROIN SITE APPEARS INTACT AT THIS MOMENT WITH A DOT OF OLD BLOOD AND TRANSPARENT DRESSING ON. PT INSTRUCTED TO KEEP RIGHT L EXTREMITY IMMOBILE FOR 6 HOURS. BEDPAN USED.
--- NOTE | 2018-10-07 19:17 | NUR ---
PT BP WAS IN THE 170S . HYDRALIZINE WAS GIVEN. BP DOWN TO 110/52
[2018-10-08] VITALS: BP 116/51; BP 140/71
[2018-10-08 04:00] VITALS: BP 137/60
[2018-10-08 05:03] LABS: HEMATOCRIT 32.7 % (37.0-47.0); MCH 29.1 pg (26.0-34.0); MCHC 33.6 g/dL (28.0-37.0); MCV 86.5 fL (80.0-100.0); MPV 8.8 fl. (7.2-11.1); RBC 3.78 mil/uL (4.20-5.00); RDW-CV 16.9 % (10.5-14.5); WBC 7.3 thou/uL (4.0-11.0)
--- NOTE | 2018-10-08 05:08 | NUR ---
ASSUMED PT CARE AT APPROX 1930. PT IS AWAKE AND ORIENTED X4. VSS ON 2L OF 02 PER . WITH COMPLAINTS OF CHEST PAIN AT 7/10 RELIEVED BY TYLENOL GIVEN PER SEP. WITH AN EPISODE OF NAUSEA AND VOMITING (BILOUS APPROX 25ML) RELIEVED BY ZOFRAN GIVEN PER SEP. OFFERED SOME CRACKERS. VTACH NOTED AT APPROX 2235 AND 0000. PT REMAINED ASYMPTOMATIC, VITALS REMAINED STABLE. DR COLON INFORMED, LABS ORDERED. CALL LIGHT WITHIN REACH. PT REMAINED STABLE THROUGH OUT THE NIGHT. NO MORE COMPLAINTS OF CHEST PAIN AND NAUSEA NOTED. HOURLY ROUNDING DONE FOR PT SAFETY
[2018-10-08 05:19] LABS: ALBUMIN 2.4 g/dL (3.4-5.0); ALKALINE PHOSPHATASE 78 U/L (46-116); ANION GAP 9 mmol/L (7-16); BUN 16 mg/dL (7-18); CALCIUM 7.6 mg/dL (8.5-10.1); CHLORIDE 105 mmol/L (98-107); CHOLESTEROL 105 mg/dL (<200); CO2 22 mmol/L (21-32); CREATININE 1.3 mg/dL (0.6-1.3); GLUCOSE 93 mg/dL (70-99); HDL CHOLESTEROL 48 mg/dL (>40); LDL CHOLESTEROL 46 mg/dL (<100); SGOT 61 U/L (15-37); SGPT 20 U/L (30-65); SODIUM 136 mmol/L (136-145); TC:HDL 2.2 Ratio (Not establshd); TOTAL BILIRUBIN 1.2 mg/dL (<0.1-1.0); TOTAL PROTEIN 5.8 g/dL (6.4-8.2); TRIGLYCERIDE 55 mg/dL (<150); VLDL 11 mg/dL (<40)
[2018-10-08 05:30] LABS: SERUM ASSESSMENT Clear
[2018-10-08 05:31] LABS: TROPONIN-I LEVEL 13.19 ng/mL (<0.06)
[2018-10-08 07:58] VITALS: BP 133/50
--- NOTE | 2018-10-08 08:22 | CON ---
[address] [address] CONSULTATION Name: DARY DE JESUS Room: [address] IN M.R.#: [id number] Admission: 10/07/18 Attend Phys: Ney Brito MD Discharge: Date of : 35 Report #: [id number] THIS REPORT FOR: //name// CC: Sanjay Alvarez TYPE OF REPORT: Cardiology consultation. INDICATION: Glk-UC-[id number] myocardial infarction. HISTORY OF PRESENT ILLNESS: The patient is a very pleasant 83-year-old white female with a history of coronary artery disease. She has had previous interventions on many occasions. Most recently on 03/13/2018, she had percutaneous coronary intervention to 80% narrowings in the proximal, mid and distal LAD. At that time, she had nonocclusive narrowing noted in the circumflex and right coronary artery. She had normal hemodynamics. Echocardiogram at that time showed an EF of 60%-65%. The patient reports nausea and vomiting for the last couple of days. She has missed some of her medications. She presented this morning with prolonged right of sternum chest pain radiating to the back. She denies any nausea or diaphoresis with the discomfort. She was without other cardiac complaint. PAST MEDICAL HISTORY: 1. Coronary artery disease with recent coronary intervention as outlined above. 2. Paroxysmal atrial fibrillation. 3. History of diverticulitis with GI bleeding in August of this year. 4. Hyperlipidemia. 5. Chronic renal insufficiency. 6. GERD. 7. Hypothyroidism. 8. Diastolic dysfunction. 9. CVA many years ago. PAST SURGICAL HISTORY: 1. Tonsillectomy. 2. Appendectomy. 3. Cholecystectomy. 4. Jaw surgery. 5. Left foot surgery. CURRENT MEDICATIONS: Atorvastatin 20 mg daily, Plavix 75 mg daily, Imdur 30 mg daily, levothyroxine 100 mcg daily, lisinopril 20 mg daily, metoprolol XL 50 mg daily, Nitrostat p.r.n. and omeprazole 20 mg daily. ALLERGIES: [place] [address] CONSULTATION Name: DARY DE JESUS Room: [address]#: [id number] Admission: 10/07/18 Attend Phys: Ney Brito MD Discharge: Date of : 35 Report #: [id number] SOCIAL HISTORY: The patient is a nonsmoker. She does not drink alcohol. She is a lifelong nonsmoker. FAMILY HISTORY: Noncontributory. PHYSICAL EXAMINATION: VITAL SIGNS: Stable. Blood pressure 156/97 and pulse 69 and regular. GENERAL: This is a pleasant elderly female, in no distress. Mood and affect appropriate. HEENT: Extraocular muscles intact. Mucous membranes are moist. NECK: Shows no jugular venous distention. There are no carotid bruits. CHEST: Reveals clear lung loving without wheezes or rales. CARDIOVASCULAR: Reveals a regular rhythm with normal S1 and S2. I do not appreciate gallop or murmur. ABDOMEN: Reveals normal bowel sounds. The abdomen is soft and nontender. EXTREMITIES: Shows no edema. SKIN: Warm and dry. LABORATORY DATA: Labs are reviewed. Sodium 141, potassium 3.2, chloride 105, bicarb 27, BUN 16, creatinine 1.1 and serum glucose 110. Initial troponin 18.15. NT-pro-BNP 1419. RADIOLOGICAL DATA: Chest x-ray shows some cardiomegaly with no acute process. IMPRESSION AND RECOMMENDATIONS: 1. Ewr-KP-dmljgiqis myocardial infarction. Plan to proceed with coronary angiography and possible intervention. I am concerned she may have some in-stent thrombosis. Heparin drip has been started. She has received aspirin. Further intervention pending the results of that study. 2. Hypertension. We will adjust her antihypertensive regimen as needed. 3. Dyslipidemia. Continue atorvastatin. 4. History of cerebrovascular accident remotely. No current symptoms at this time. 5. History of some gastrointestinal bleeding that by colonoscopy and was found to be due to diverticulitis/diverticulosis. <ELECTRONICALLY SIGNED> By: John Renee MD, FACC 10/08/18 0822 1024 [id number] Renee MD, FACC /nt
--- NOTE | 2018-10-08 10:06 | NUR ---
ASSUMED PT CARE REPORT RECEIVED FROM NURSE. PT IS AOX4 SR ON FILAMENT TESTER. ON RA AND SATURATION IS 96%. PT DENIES CHEST PAIN, N/V THIS AM. MEDICATION ADMINISTERED ORDERED. R GROIN SITE IN INTACT COVERED WITH TRANSPARENT DRESSING WHICH HAS OLD SPOT OF BLOOD FROM LAST NIGHT. BP MEDS GIVEN WILL MONITOR BP BEFORE DISCHARGE. PT TO GO HOME TODAY. AWAITNG FOR DICHARGE ORDER.
[2018-10-08 11:14] VITALS: BP 133/50
[2018-10-08 11:30] VITALS: BP 133/50
[2018-10-08] MEDS ORDERED: NITROGLYCERIN0.4 MG SUBLING (11:30)
--- NOTE | 2018-10-08 11:48 | NUR ---
DISCHARGE INSTRUCTIONS GIVEN, PT DOES NOT HAVE ANY MORE QUESTIONS. PT AWAITING FOR RIDE TO RESERVOIR ENGINEERING MANAGER.
--- NOTE | 2018-10-08 12:10 | EKG ---
[place] [address] ELECTROCARDIOGRAM REPORT Name: BRIGETTEMARIA LUZDARY L Room: [address] ADM IN M.R.#: [id number] Admission: 10/07/18 Attend Phys: Ney Brito MD Discharge: Date of : 35 Report #: [id number] THIS REPORT FOR: //name// [facility] ED Test Date: 2018-10-07 Test Time: 09:05:36 Pat Name: DARY DE JESUS Department: Room: [address] Gender: F Transportation Engineering Technician: UNKNOWN : 1935 Requested By: Armen Green Order Number: [id number] Reading MD: John Renee Measurements Intervals [place] Rate: 67 P: 48 DE: 133 QRS: -12 QRSD: 83 T: 25 QT: 429 QTc: 453 Interpretive Statements Sinus rhythm Atrial premature complex Abnormal R-wave progression, early transition Abnormal T, consider ischemia, anterior leads Baseline wander in lead(s) V2,V6 Compared to ECG 08/22/2018 11:55:07 Atrial premature complex(es) now present T-wave abnormality now present Possible ischemia now present Early repolarization no longer present Electronically Signed On 10-08-2018 12:10:38 CDT by John Renee [email or web address] <ELECTRONICALLY SIGNED> By: John Renee MD, FACC 10/08/18 1210 4 4 John Renee MD, [facility] /EPI
--- NOTE | 2018-10-08 12:12 | EKG ---
[place] [address] ELECTROCARDIOGRAM REPORT Name: BRIGETTEMARIA LUZDARY L Room: [address] ADM IN M.R.#: [id number] Admission: 10/07/18 Attend Phys: Ney Brito MD Discharge: Date of : 35 Report #: [id number] THIS REPORT FOR: //name// [facility] Test Date: 2018-10-07 Test Time: 13:30:05 Pat Name: DARY DE JESUS Department: Room: [facility] Gender: F Evaluator: LOBO : 1935 Requested By: Armen Green Order Number: [id number] MD: John Renee Measurements Intervals [place] Rate: 79 P: 60 UT: 136 QRS: -13 QRSD: 83 T: 49 QT: 412 QTc: 473 Interpretive Statements Sinus rhythm Abnormal R-wave progression, early transition Abnormal T, consider ischemia, anterior leads Borderline ST elevation, lateral leads Compared to ECG 08/22/2018 11:55:07 T-wave abnormality now present Possible ischemia now present ST (T wave) deviation now present Early repolarization no longer present Electronically Signed On 10-08-2018 12:12:38 CDT by John Renee [email or web address] <ELECTRONICALLY SIGNED> By: John Renee MD, FACC 10/08/18 1212 1330 1330 John Renee MD, FAC /EPI
--- NOTE | 2018-10-08 12:14 | EKG ---
[place] [address] ELECTROCARDIOGRAM REPORT Name: BRIGETTEMARIA LUZDARY L Room: [address] ADM IN M.R.#: [id number] Admission: 10/07/18 Attend Phys: Ney Brito MD Discharge: Date of : 35 Report #: [id number] THIS REPORT FOR: //name// [facility] Test Date: 2018-10-07 Test Time: 16:05:07 Pat Name: DARY DE JESUS Department: Room: [facility] Gender: F Mathematics Department Chair: LOBO : 1935 Requested By: Veto Alvarez Order Number: [id number] Benjamin MD: John Renee Measurements Intervals [place] Rate: 97 P: 49 MA: 134 QRS: -10 QRSD: 91 T: 25 QT: 414 QTc: 526 Interpretive Statements Multifocal atrial tachycardia Low voltage, extremity and precordial leads Nonspecific ST and T wave abnormalities Prolonged QT interval Compared to ECG 08/22/2018 11:55:07 Atrial premature complex(es) now present Low QRS voltage now present ST (T wave) deviation now present Prolonged QT interval now present Early repolarization no longer present Electronically Signed On 10-08-2018 12:14:06 CDT by John Renee [email or web address] <ELECTRONICALLY SIGNED> By: John Renee MD, FACC 10/08/18 1214 1605 1605 John Renee MD, [facility] /EPI
--- NOTE | 2018-10-08 12:15 | EKG ---
[place] [address] ELECTROCARDIOGRAM REPORT Name: DARY DE JESUS Room: [address] ADM IN M.R.#: [id number] Admission: 10/07/18 Attend Phys: Ney Brito MD Discharge: Date of : 35 Report #: [id number] THIS REPORT FOR: //name// [facility] Test Date: 2018-10-08 Test Time: 00:08:53 Pat Name: DARY DE JESUS Department: Room: [facility] Gender: F Pleater Hand: JCRUZ : 1935 Requested By: Veto Alvarez Order Number: [id number] Benjamin MD: John Renee Measurements Intervals [place] Rate: 92 P: 56 CA: 131 QRS: -10 QRSD: 79 T: 49 QT: 403 QTc: 499 Interpretive Statements Sinus rhythm Low voltage, extremity leads Abnormal T, consider ischemia, anterior leads Minimal ST elevation, anterior leads Compared to ECG 08/22/2018 11:55:07 Low QRS voltage now present T-wave abnormality now present Possible ischemia now present ST (T wave) deviation now present Early repolarization no longer present Electronically Signed On 10-08-2018 12:15:23 CDT by John Renee [email or web address] <ELECTRONICALLY SIGNED> By: John Renee MD, FACC 10/08/18 1215 0008 0008 John Renee MD, FAC /EPI
[2018-10-08 12:42] VITALS: BP 133/50
--- NOTE | 2018-10-09 15:02 | NUR ---
Cardiac rehab. Stent and angioseal cards and booklets, Cardiac Rehab book and Heart healthy diet book sent to patient's home via [employer]PS.
--- NOTE | 2018-10-10 16:28 | CARD ---
[address] [address] CARDIAC CATH REPORT Name: DARY DE JESUS Smita Room: [address]#: [id number] Admission: 10/07/18 Attend Phys: Ney Brito MD Discharge: 10/08/18 Date of : 35 Report #: [id number] THIS REPORT FOR: //name// APPROVED REPORT Study performed: 10/07/2018 10:45:18 Patient Details Patient Status: ED Room #: The patient is a 83 year-old female Event Personnel John Renee Circulation Librarian, Veto Alvarez Circulation Librarian, Emanuel Davalos (R) Darryl Triana Jill RN Factory Representative, Azalia Hoffman RN Monitor Procedures Performed Art Access - R femoral artery* Coronary Angiography Only DENISE Place w/wo Plasty Single RCA Hemostasis w/ Angioseal , Right transradial approach Indication Non-STEMI Risk Factors Hypercholesterolemia, Hypertension Previous Procedures/Diagnoses Previous PCI Admission/Lab Medications/Medications given during procedure Aspirin, Platelet Aff. Inhib. Procedure Narrative The patient was brought urgently to the Cardiac Catheterization Laboratory and was prepped and draped in a sterile manner. The right femoral was infiltrated with 2% Lidocaine subcutaneous anesthesia. A [place] 6 FR sheath was inserted into the right femoral artery. Coronary angiography was performed using coronary diagnostic catheters. The right coronary system was accessed and visualized with a 3DRC 6fr catheter. The left coronary system was accessed and visualized with a 6Fr JL4 catheter. The patient tolerated the procedure well and there were no complications associated with the procedure. There was no hematoma. Patient did have a small amount of bleeding from groin site. Manual Pressure held [place] [address] CARDIAC CATH REPORT Name: BRIGETTEDARY BRAGA Room: [address]#: [id number] Admission: 10/07/18 Attend Phys: Ney Brito MD Discharge: 10/08/18 Date of : 35 Report #: [id number] achieved. Intraoperative Conscious Sedation Sedation start time: 11:35 Case end Time: 12:35 Fentanyl 75 mcg Versed 3 mg Dose: DAP 64872 cGycm2 1233 mGy Contrast Type and Amount: Visipaque 440 ml Coronary Angiography The patient's coronary anatomy is right dominant. Diagnostic Cath Left Main 0 percent narrowing LAD 40 Percent tubular proximal narrowing Circumflex 30% mid vessel narrowing Right Coronary 60% ostial narrowing with 90% mid vessel stenosis with local dye density difference suggesting plaque rupture or local thrombus Left Ventriculography Left Ventriculography was not performed. Hemodynamics The aortic pressure is 164/63 mmHg with a mean of 102 mmHg. PCI Technique Lesion Anticoagulation was achieved with Angiomax. Patient was preloaded with Angiomax IV 9 ml. Percutaneous coronary intervention was performed on the mid right coronary artery. The lesion stenosis prior to intervention was 90% with HAYES 3 flow. A 6F 3DRC Guide Catheter was used to engage the ostium. A BMW 190cm Interventional Guidewire was used to cross the lesion. BALLOON DILATION A Balloon catheter Trek RX 2.25 X 12 was inserted and inflated up to 12.00atm for 14seconds. STENT DEPLOYMENT A drug-eluting stent Antonio RX Stent 2.34M49wq was inserted and inflated up to 12.00atm for 10seconds. Additional Inflation: 15.00atm for 7seconds. POST STENT DEPLOYMENT BALLOON DILATION A Balloon catheter NC Trek RX 3.0 X 12 was inserted [place] [address] CARDIAC CATH REPORT Name: DARY DE JESUS Room: [address]#: [id number] Admission: 10/07/18 Attend Phys: Ney Brito MD Discharge: 10/08/18 Date of : 35 Report #: [id number] to 16.00atm for 8seconds. Additional Inflation: 16.00atm for 10seconds. Final angiography reveals 0 % stenosis with HAYES 3 flow. PCI Technique Lesion 2 Percutaneous Coronary Intervention was performed on the ostial proximal right coronary artery. The lesion stenosis prior to intervention was 70% with HAYES 3 flow. Balloon Dilation A Balloon catheter NC Trek RX 3.0 X 12 was inserted and inflated up to 16atm for 2seconds. Final angiography reveals 0 % stenosis with HAYES 3 flow. Conclusion #1 significant coronary artery disease characterized by the following: A 40% tubular proximal LAD narrowing B 30% mid circumflex narrowing, this being a nondominant vessel C dominant right coronary artery with 60-70% ostial and 90% mid vessel stenosis #2 successful percutaneous coronary intervention with deployment of drug-eluting stent at site of 90% mid right coronary stenosis with 0% residual narrowing #3 successful percutaneous transluminal coronary angioplasty at the site of 60-70% in-stent restenosis of the ostial proximal right coronary artery with 0% residual narrowing following final dilatation Recommendations Cardiac Risk Reduction Program Aggressive Medical Therapy Medications Administered Aspirin (any) [place] [address] CARDIAC CATH REPORT Name: DARY DE JESUS Smita Room: [address]#: [id number] Admission: 10/07/18 Attend Phys: Ney Brito MD Discharge: 10/08/18 Date of : 35 Report #: [id number] Diagnostic Cath Approved by: John Renee MD Date/Time: 10/10/2018 16:27:02 <ELECTRONICALLY SIGNED> By: Veto Alvarez MD, [facility] 10/10/18 1627 1627 1627John Alida Alvarez MD, FACC /INF
== END 2018-10-08 12:20 | disposition home or self-care (01) | DRG 247 ==
LOC: M.ERS 09:00 → M.TBA-ER 09:57 → M.2W 13:14
PROVIDERS: Emergency Medicine; Internal Medicine; ADMIT Internal Medicine
PROC: 4A023N7 Measurement of Cardiac Sampling and Pressure, Left Heart, Percutaneous Approach (ICD-10-PCS; principal; 2018-10-07)
PROC: B211YZZ Fluoroscopy of Multiple Coronary Arteries using Other Contrast (ICD-10-PCS; principal; 2018-10-07)
PROC: 027034Z Dilation of Coronary Artery, One Artery with Drug-eluting Intraluminal Device, Percutaneous Approach (ICD-10-PCS; principal; 2018-10-07)
DX: I21.4 Non-ST elevation (NSTEMI) myocardial infarction (principal); I47.2 Ventricular tachycardia; E44.0 Moderate protein-calorie malnutrition; Z68.41 Body mass index [BMI] 40.0-44.9, adult; I25.10 Atherosclerotic heart disease of native coronary artery without angina pectoris; E78.5 Hyperlipidemia, unspecified; E03.9 Hypothyroidism, unspecified; K21.9 Gastro-esophageal reflux disease without esophagitis; E83.42 Hypomagnesemia; I48.0 Paroxysmal atrial fibrillation; N18.2 Chronic kidney disease, stage 2 (mild); I12.9 Hypertensive chronic kidney disease with stage 1 through stage 4 chronic kidney disease, or unspecified chronic kidney disease; K57.90 Diverticulosis of intestine, part unspecified, without perforation or abscess without bleeding; Z95.5 Presence of coronary angioplasty implant and graft; Z86.73 Personal history of transient ischemic attack (TIA), and cerebral infarction without residual deficits; Z90.49 Acquired absence of other specified parts of digestive tract; Z82.49 Family history of ischemic heart disease and other diseases of the circulatory system; Z79.82 Long term (current) use of aspirin; Z79.899 Other long term (current) drug therapy

== ENCOUNTER 2019-01-04 15:18 | Emergency (ER) | payer OTHER ==
[~2019-01-04] VITALS: Ht 147.3 cm; Wt 60.3 kg
[~2019-01-04 15:18] MED LIST changes: +NITROGLYCERIN0.4 MG SUBLING
[2019-01-04] MEDS ORDERED: BRILINTA60 MG PO (15:33)
[2019-01-04] MEDS ORDERED: PROTONIX 20 MG20 MG PO (15:34)
[2019-01-04] MEDS ORDERED: ACETAMINOPHEN-1 EAC1 PO (16:35)
[2019-01-04 16:49] VITALS: BP 169/73
== END 2019-01-04 16:50 | disposition home or self-care (01) ==
LOC: M.ERS 15:18
DX: S00.83XA Contusion of other part of head, initial encounter (principal); K21.9 Gastro-esophageal reflux disease without esophagitis; I12.9 Hypertensive chronic kidney disease with stage 1 through stage 4 chronic kidney disease, or unspecified chronic kidney disease; N18.2 Chronic kidney disease, stage 2 (mild); E78.5 Hyperlipidemia, unspecified; E03.9 Hypothyroidism, unspecified; Z90.49 Acquired absence of other specified parts of digestive tract; Z86.73 Personal history of transient ischemic attack (TIA), and cerebral infarction without residual deficits; W22.8XXA Striking against or struck by other objects, initial encounter; Y93.89 Activity, other specified; Y92.89 Other specified places as the place of occurrence of the external cause; Y99.8 Other external cause status

== ENCOUNTER → 2019-08-29 | Outpatient (CLI) | payer MEDICARE ==
[~2019-08-29] MED LIST changes: +ACETAMINOPHEN-1 EAC1 PO; +BRILINTA60 MG PO; +PROTONIX 20 MG20 MG PO
--- NOTE | 2019-08-30 14:01 | CARDNUC ---
[place] [address] CARDIAC NUCLEAR IMAGING REPORT Name: DARY DE JESUS Room: [facility]#: [id number] Admission: 08/29/19 Attend Phys: Isidra Torrez Discharge: Date of : 35 Date of Service: 08/30/19 1400 Report #: [id number] THIS REPORT FOR: cc: Sanjay Turner Chad W. DO Biggs, F. Douglas MD [facility] ~ APPROVED REPORT Study performed: 08/29/2019 15:03:41 Exam: Nuclear Stress Test Indication: Atrial Fibrillation Patient Location: Out-Patient Stress Tech: Susan Kinney Stress Nurse: Jackelyn Paz NM Tech:HILDA Saravia Ht: 4 ft 10 in Wt: 134 lbs BSA: 1.54 m2 HR: 57 bpm BP: 238/86 mmHg BMI: 28.00 Rhythm: , NSR Medical History Medical History: , CAD s/p MA, Atrial Fibrillation Medications: Aspirin, Lisinopril, Metoprolol, ntg, Atorvastatin, Plavix Allergies: - FE, Zithromax Cardiac Risk Factors: Hyperlipidemia, HTN, FHX of CAD, Age Previous Cardiac Procedures: PCI Meds Held (24 hrs): Metoprolol, Nitrate Stress Test Details Stress Test: Pharmacologic stress testing performed using 0.4 mg of regadenoson per 5 mL given IV over 10 seconds. HR Resting HR: 57 bpm Max Heart Rate (APMHR): 136 bpm Max HR Achieved: 91 bpm Target HR (85% APMHR): 115 bpm % of APMHR: 66 Recovery HR: 63 bpm HR response to stress: Normal HR response to stress BP Resting BP: 238/[place] [address] CARDIAC NUCLEAR IMAGING REPORT Name: DARY DE JESUS [id number] Admission: 08/29/19 Attend Phys: Isidra Torrez Discharge: Date of : 35 Date of Service: 08/30/19 [facility] Report #: [id number] Max BP: 173/77 mmHg BP response to stress: Normal blood pressure response to stress. ECG Resting ECG: sinus bradycardia with premature atrial beats. Otherwise unremarkable. Stress ECG: sinus rhythm with 1 brief run of PSVT. Also there were PACs. Otherwise unremarkable ST Change: none Maximum ST Deviation: 0 mm Arrhythmia: APCs and one brief run of PSVT Recovery ECG: normal sinus rhythm otherwise unremarkable Recovery ST Change: None Recovery ST Deviation: 0 mm Recovery Arrhythmia: APC Clinical Reason for Termination: Completed protocol Stress Symptoms: None Stress ECG Conclusion Normal hemodynamic response to pharmacologic stress. Non-diagnostic pharmacologic EKG stress due to failure to attain target HR. NM EXAM: Myocardial Perfusion REST/STRESS Imaging Protocol: Rest Tc-99m/Stress Tc-99m 1 day Resting Data Rest SPECT myocardial perfusion imaging was performed in supine position 30 minutes following the intravenous injection of 11.2 mCi of Tc-99m Sestamibi. Time of rest injection: 1330 Date: 08/29/2019 The images were gated to evaluate regional wall motion and calculate left ventricular ejection fraction. Administration Route: IV Administration Site: Left Arm Pharmacologic Stress Pharmacologic stress test was performed by injecting Regadenoson 0.4 mg IV push followed by the intravenous injection of 32.0 mCi of Tc-99m Sestamibi. Time of stress injection: 1510 Date: 08/29/2019 Administration Route: [place] [address] CARDIAC NUCLEAR IMAGING REPORT Name: DARY DE JESUS Room: [facility] Read#: [id number] Admission: 08/29/19 Attend Phys: Isidra Torrez Discharge: Date of : 35 Date of Service: 08/30/19 [facility] Report #: [id number] Administration Site: Left Arm Gated Stress SPECT was performed 40 minutes after stress injection. The images were gated to evaluate regional wall motion and calculate left ventricular ejection fraction. Stress only was performed in the Supine position. Study Data At rest, the left ventricular ejection fraction was 71%.. Post stress, the left ventricular ejection was 73%.. SSS: 5 SRS: C SDS: 5 Perfusion The resting study demonstrated a small very mild apical defect. The post stress images demonstrate a small moderate in intensity apical defect. These images demonstrate a small bowel to moderate apical partially reversible defect compatible with ischemia. Images were reviewed using [employer]. Wall Motion Normal left ventricular wall motion. Nuclear Conclusion ECG Findings: non-diagnostic Clinical Findings: negative for ischemia Nuclear Findings: positive for ischemia Exercise Capacity: not assessed Left Ventricular Function: normal Risk Study: low Abnormal study. Scintigraphic evidence for ischemia. <Conclusion> Normal hemodynamic response to pharmacologic stress. Non-diagnostic pharmacologic EKG stress due to failure to attain target HR. <ELECTRONICALLY SIGNED> By: Brianne Donahue MD, FACC 08/30/19 1400 1400 99 Brianne Donahue MD, FACC /INF
== END ==
LOC: M.NUC 02-07 11:28
DX: I25.10 Atherosclerotic heart disease of native coronary artery without angina pectoris (principal); I48.91 Unspecified atrial fibrillation; Z95.5 Presence of coronary angioplasty implant and graft; Z88.1 Allergy status to other antibiotic agents; Z88.8 Allergy status to other drugs, medicaments and biological substances

== ENCOUNTER → 2021-01-13 | Outpatient (CLI) | payer OTHER, MEDICAID ==
[~2021-01-13] MED LIST changes: +PRESERVISION A1 EAC2 PO; +SYNTHROID88 MC1 PO; +VITAMIN D3250 MCG PO; +Vitamin D3 PO
--- NOTE | 2021-01-13 16:19 | CARDNUC ---
[place] [address] CARDIAC NUCLEAR IMAGING REPORT Name: DARY DE JESUS Room: [facility]#: [id number] Admission: 01/13/21 Attend Phys: Isidra Torrez Discharge: Date of : 35 Date of Service: 01/13/21 1619 Report #: [id number] THIS REPORT FOR: cc: ADAL REHMAN,ADAL Renee,John Nazario MD [facility] ~ APPROVED REPORT Study performed: 01/13/2021 14:17:21 Exam: Nuclear Stress Test Indication: chest pain, fatigue. Patient Location: Out-Patient Stress Tech: Susan Kinney Stress Nurse: Mirela Winchester Tech:HILDA Saravia Ht: 4 ft 10 in Wt: 148 lbs BSA: 1.60 m2 BMI: 30.92 Medical History Medical History: Angina,Flutter feeling, Atrial Fibrillation, CAD s/p ME, CAD s/p stent, Fatigue, HTN, Hyperlipidemia, Stroke/TIA, Weakness, hypercholesterolemia, LE edema, multiple recent falls, wheelchair use, Diaphoresis. Medications: ASA 81 mg, Atorvastatin, Plavix, Imdur, Lisinopril, Metoprolol succinate, NTG. Allergies: Azithromycin, -iron. Cardiac Risk Factors: Age, FHX of CAD, HTN, Hyperlipidemia, PAFib, HX TIA, LE Edema. Previous Cardiac Procedures: Myocardial infarction, PCI. Pretest Chest Pain Characteristics: No chest pain Exercise History: Sedentary Physical Disabilities: Wheelchair use, multiple recent falls with injury. Meds Held (24 hrs): Imdur, Metoprolol, NTG. Stress Test Details Stress Test: Pharmacologic stress testing performed using 0.4 mg of regadenoson per 5 mL given IV over 10 seconds. Reason for pharmacologic stress test: Wheelchair use, multiple recent falls with injury.. HR Resting HR: 83 bpm Max Heart Rate (APMHR): 135 [place] [address] CARDIAC NUCLEAR IMAGING REPORT Name: DARY DE JESUS Room: [facility]#: [id number] Admission: 01/13/21 Attend Phys: Isidra Torrez Discharge: Date of : 35 Date of Service: 01/13/21 1619 Report #: [id number] Max HR Achieved: 101 bpm Target HR (85% APMHR): 114 bpm % of APMHR: 74 Recovery HR: 94 bpm BP Resting BP: 205/112 mmHg Max BP: 121/60 mmHg ECG Resting ECG: Sinus Rhythm Stress ECG: Sinus Tachycardia ST Change: None Arrhythmia: None Recovery ECG: Sinus Rhythm Recovery ST Change: None Recovery Arrhythmia: None Clinical Reason for Termination: Completed protocol Stress Symptoms: dyspnea, nausea, chest heaviness, flushed/warmth, fatigue. Exercise duration: 00 min 00 sec Exercise capacity: 1.00 METs The patient noted chest heaviness with Lexiscan infusion felt to likely be due to medication effect in light of nuclear medicine imaging findings. Nurse Comments An 85 year old female presented for a sitting Lexiscan Nuclear Stress Test. Test tolerated. Recovery unremarkable. Patient was stable and stated she felt good when escorted via wheelchair to Nuclear Medicine for imaging. Stress ECG Conclusion The baseline twelve-lead EKG shows sinus rhythm with inverted T waves in the anteroseptal leads. There were no significant ST segment abnormality. EKGs obtained during and post Lexiscan infusion show sinus rhythm and sinus tachycardia with no significant ST segment changes when compared to baseline. There were no stress-induced arrhythmias. NM EXAM: Myocardial Perfusion REST/STRESS Imaging Protocol: Rest Tc-99m/Stress Tc-99m 1 day Resting Data Rest SPECT myocardial perfusion imaging [place] [address] CARDIAC NUCLEAR IMAGING REPORT Name: DARY DE JESUS Room: [facility]#: [id number] Admission: 01/13/21 Attend Phys: Isidra Torrez Discharge: Date of : 35 Date of Service: 01/13/21 1619 Report #: [id number] position 30 minutes following the intravenous injection of 9.9 mCi of Tc-99m Sestamibi. Time of rest injection: 1310 Date: 01/13/2021 The images were gated to evaluate regional wall motion and calculate left ventricular ejection fraction. Administration Route: IV Administration Site: Right AC Pharmacologic Stress Pharmacologic stress test was performed by injecting Regadenoson 0.4 mg IV push followed by the intravenous injection of 31.2 mCi of Tc-99m Sestamibi. Time of stress injection: 1440 Date: 01/13/2021 Administration Route: IV Administration Site: Right AC Gated Stress SPECT was performed 40 minutes after stress injection. The images were gated to evaluate regional wall motion and calculate left ventricular ejection fraction. Prone imaging was performed. Study Quality Study: Good Artifact: No artifact Study Data At rest, the left ventricular ejection fraction was 76%.. Post stress, the left ventricular ejection was 74%.. TID = 0.99. Perfusion Perfusion images obtained at rest and post Lexiscan stress show a focal apical defect that is slightly more pronounced on the stress than resting images. No other significant fixed or reversible defects are identified. Wall Motion Global LV systolic function appears normal. No obvious wall motion abnormalities noted. Nuclear Conclusion ECG Findings: negative for ischemia Clinical Findings: equivocal Nuclear Findings: positive for ischemia Exercise Capacity: not assessed Left Ventricular Function: [place] [address] CARDIAC NUCLEAR IMAGING REPORT Name: BRIGETTEMARIA LUZDARY DYLAN Room: [facility] Read#: [id number] Admission: 01/13/21 Attend Phys: Isidra Torrez Discharge: Date of : 35 Date of Service: 01/13/21 1619 Report #: [id number] Risk Study: moderate Perfusion images show a focal apical defect that could represent an apical infarct with slight aakash-infarct ischemia. Global LV systolic function appears relatively normal. This is a moderate risk study. <Conclusion> The baseline twelve-lead EKG shows sinus rhythm with inverted T waves in the anteroseptal leads. There were no significant ST segment abnormality. EKGs obtained during and post Lexiscan infusion show sinus rhythm and sinus tachycardia with no significant ST segment changes when compared to baseline. There were no stress-induced arrhythmias. <ELECTRONICALLY SIGNED> By: John Renee MD, FACC 01/13/21 1619 18 18 John Renee MD, FACC /INF
== END ==
LOC: M.NUC 01-01 15:24
PROVIDERS: ATTEND Internal Medicine
DX: R00.0 Tachycardia, unspecified (principal); I25.10 Atherosclerotic heart disease of native coronary artery without angina pectoris; Z95.5 Presence of coronary angioplasty implant and graft; R07.9 Chest pain, unspecified; R53.83 Other fatigue

== ENCOUNTER 2021-01-16 07:54 | Observation (INO) | payer OTHER, MEDICAID ==
[~2021-01-16] VITALS: Ht 147.3 cm; Wt 67.6 kg
[2021-01-16] VITALS (8 sets, daily range): BP systolic 137–188; BP diastolic 72–93
--- NOTE | ~2021-01-16 | D ---
[address] [address] DISCHARGE SUMMARY Name: DARY DE JESUS Room: [address] M.R.#: [id number] Admission: 01/16/21 Attend Phys: Veto Alvarez MD, Discharge: Date of : 35 Report #: [id number] THIS REPORT FOR: cc: ADAL REHMAN,ADAL Alvarez,Veto Irwin MD [facility] ~ DOC #: [id number] Veto Alvarez MD [facility] DATE OF DISCHARGE: 01/17/2021 FINAL DISCHARGE DIAGNOSES: 1. Abnormal nuclear stress test. 2. Unstable angina. 3. Coronary artery disease. 4. Status post PTCA with stenting of the ostial proximal right coronary artery. 5. History of remote transient ischemic attack. 6. Hypertension. 7. History of paroxysmal atrial fibrillation. 8. Hyperlipidemia. PROCEDURES: 01/16/2021 -- left heart catheterization, left ventriculography, selective coronary arteriography, and percutaneous coronary intervention with deployment of drug-eluting stent at site of 80% ostial proximal right coronary stenosis. HOSPITAL COURSE: The patient is a very pleasant 85-year-old female with a history of coronary artery disease, status post remote stenting of the LAD and right coronary artery. Recently, she has noted relatively frequent episodes of chest discomfort compatible with angina. Nuclear stress testing was performed, which was abnormal. In that context and with known risk factors of hypertension, hyperlipidemia, she underwent cardiac catheterization on 01/16/2021. That study demonstrated 80% ostial right coronary stenosis with a 40% midvessel narrowing. There was 30% proximal mid LAD narrowing with 50% distal LAD narrowing. There was 30% proximal circumflex narrowing. The left main coronary artery was normal. The left ventricular function was normal. Estimated ejection fraction of 60-65%. Given this data and the recent clinical pattern of unstable angina, I performed PCI, deploying one 3.0 x 8 mm [place] drug-eluting stent in the ostium of the right coronary artery, postdilated to 3.25 mm with 0% residual narrowing and HAYES-3 flow to the distal vessel. The patient did well post-procedurally without chest discomfort[place] [address] DISCHARGE SUMMARY Name: DARY DE JESUS Room: [address] M.R.#: [id number] Admission: 01/16/21 Attend Phys: Veto Alvarez MD, Discharge: Date of : 35 Report #: [id number] inconsequentially to 0.27. Additional lab on 01/17 revealed sodium 145, potassium 3.7, BUN 16, creatinine 1.1. Hemoglobin 11.3, white blood cell count 4600. The patient ambulated in the hallways without difficulty. There was good hemostasis at the right femoral site. She was discharged home in stable condition on the following medications: Lisinopril 20 mg daily, metoprolol succinate 50 mg daily, aspirin 81 mg daily, Imdur 30 mg daily, clopidogrel 75 mg daily with a 300 mg periprocedural dose having been given, p.r.n. sublingual nitroglycerin 0.4 mg as needed, pantoprazole or Protonix 40 mg daily, atorvastatin 10 mg at bedtime, Synthroid 88 mcg daily, calcium with vitamin C and E, zinc, copper, Lutein 2 tablets daily, vitamin D3 250-mcg tablets 2000 units daily. I will plan to see the patient in followup on 01/22/2021 at 1440 in [facility] office. Therefore, the patient is discharged home in stable condition on the aforementioned medications with followup as described above. Veto Alvarez MD [facility] By: 0840 0911Veto Alvarez MD, [facility] /nt
[2021-01-16 08:29] LABS: HEMATOCRIT 36.8 % (37.0-47.0); MCH 33.1 pg (26.0-34.0); MCHC 35.2 g/dL (28.0-37.0); MCV 94.1 fL (80.0-100.0); MPV 7.8 fl. (7.2-11.1); RBC 3.91 mil/uL (4.20-5.00); RDW-CV 14.1 % (10.5-14.5); WBC 5.5 thou/uL (4.0-11.0)
[2021-01-16 08:42] LABS: APTT 23.9 Seconds (25.0-31.3); PROTIME 10.7 Seconds (9.20-11.50)
[2021-01-16 08:43] LABS: ALBUMIN 2.7 g/dL (3.4-5.0); ALKALINE PHOSPHATASE 104 U/L (46-116); ANION GAP 6 mmol/L (7-16); BUN 20 mg/dL (7-18); CALCIUM 8.6 mg/dL (8.5-10.1); CHLORIDE 110 mmol/L (98-107); CHOLESTEROL 141 mg/dL (<200); CO2 27 mmol/L (21-32); CREATININE 1.3 mg/dL (0.6-1.3); GLUCOSE 106 mg/dL (70-99); HDL CHOLESTEROL 41 mg/dL (>40); LDL CHOLESTEROL 58 mg/dL (<100); SERUM ASSESSMENT Clear; SGOT 15 U/L (15-37); SGPT 22 U/L (30-65); SODIUM 143 mmol/L (136-145); TC:HDL 3.4 Ratio (Not establshd); TOTAL BILIRUBIN 0.7 mg/dL (<0.1-1.0); TOTAL PROTEIN 6.2 g/dL (6.4-8.2); TRIGLYCERIDE 214 mg/dL (<150); VLDL 43 mg/dL (<40)
--- NOTE | 2021-01-16 11:02 | EKG ---
[place] [address] ELECTROCARDIOGRAM REPORT Name: DARY DE JESUS Room: [address] M.R.#: [id number] Admission: 01/16/21 Attend Phys: Isidra Torrez Discharge: Date of : 35 Date of Service: 01/16/21 0836 Report #: [id number] THIS REPORT FOR: //name// [facility] Test Date: 2021-01-16 Test Time: 08:36:07 Pat Name: DARY DE JESUS Department: Room: [facility] Gender: F Joint Creaser: : 1935 Requested By: Veto Alvarez Order Number: [id number] Reading MD: Veto Alvarez Measurements Intervals [place] Rate: 70 P: 19 [place]: 176 QRS: -19 QRSD: 91 T: -1 QT: 423 QTc: 457 Interpretive Statements Sinus rhythm Sinus pause Abnormal R-wave progression, early transition Inferior infarct, old Compared to ECG 10/08/2018 00:08:53 Sinus pause now present Myocardial infarct finding now present T-wave abnormality no longer present Possible ischemia no longer present ST (T wave) deviation no longer present Electronically Signed On 01-16-2021 11:02:14 CDT by Veto Alvarez [email or web address] <ELECTRONICALLY SIGNED> By: Veto Alvarez MD, [facility] 01/16/21 1102 0836 Veto Alvarez MD, [facility] /EPI
--- NOTE | 2021-01-16 13:23 | CARD ---
[address] [address] CARDIAC CATH REPORT Name: DARY DE JESUS Room: [address] Carlos Alberto M.RPam#: [id number] Admission: 01/16/21 Attend Phys: Veto Alvarez MD, Discharge: Date of : 35 Report #: [id number] THIS REPORT FOR: cc: ADAL REHMAN,ADAL Alvarez,Veto Irwin MD [facility] ~ APPROVED REPORT Study performed: 01/16/2021 09:08:51 Patient Details Patient Status: Out-Patient Room #: The patient is a 85 year-old female Event Personnel Veto Alvarez Punch Molder, Shasha Traore RN Manager Water [employer], Red Slater RTR Scrub, Stormy Resendiz RTR Monitor Procedures Performed Art Access - R femoral artery , Left Heart Cath w/or w/o Coronaries LHC , DENISE Place w/wo Plasty Single RCA , Hemostasis w/ Angioseal Indication Unstable angina , Positive stress test Risk Factors Hypercholesterolemia, Hypertension Previous Procedures/Diagnoses Previous PCI Admission/Lab Medications/Medications given during procedure Angiomax IV 10 ml, Angiomax Drip IV 23.7 ml per hr, Plavix PO 300 mg, Aspirin PO 81 mg Procedure Narrative The patient was brought electively to the Cardiac Catheterization Laboratory and was prepped and draped in a sterile manner. The right femoral was infiltrated with 2% Lidocaine subcutaneous anesthesia. IV conscious sedation was used throughout procedure with appropriate monitoring and was performed in the presence of a registered nurse who was an independent trained [place] [address] CARDIAC CATH REPORT Name: DARY DE JESUS Room: [address] Carlos Alberto Read#: [id number] Admission: 01/16/21 Attend Phys: Veto Alvarez MD, Discharge: Date of : 35 Report #: [id number] performing the procedure. A 6fr Ultimum sheath was inserted into the right femoral artery. Coronary angiography was performed using coronary diagnostic catheters. The right coronary system was accessed and visualized with a 6F JR4 catheter. The left coronary system was accessed and visualized with a 6F JL4 catheter. The left ventricle was accessed and visualized with a 6F Pigtail catheter. Left ventricular/Aortic Valve gradient assessed via catheter pullback. Left ventriculogram was performed in LAMBERT projection. Pre-demployment femoral angiogram was performed . Closure device was deployed with a 6 Fr Angioseal STS. The patient tolerated the procedure well and there were no complications associated with the procedure. There was no hematoma. Intraoperative Conscious Sedation Sedation start time: 09:27 Case end Time: 10:22 Fentanyl 25 mcg Versed 1 mg Fluoro Time: 18.4 minutes Dose: DAP 685588 cGycm2 1864 mGy Contrast Type and Amount: Visipaque 220 ml Diagnostic Cath Left Main 0% narrowing LAD 30% proximal mid LAD narrowing with 30% apical stenosis Circumflex 30% tubular narrowing of the proximal circumflex Right Coronary Dominant vessel with 80% focal ostial stenosis and 40% mid vessel narrowing Left Ventriculography The left ventricle is normal in size with normal contractility. The left ventricular ejection fraction is estimated to be 60-65%. Left ventricular wall motion abnormalities are not present. There is no mitral insufficiency. Hemodynamics The aortic pressure is 130/57 mmHg with a mean of 88 mmHg. The left ventricular pressure is 134/2 mmHg with a mean of mmHg. The left ventricular end diastolic pressure is 8 mmHg. There was no gradient across the aortic valve upon pullback. PCI Technique Lesion Anticoagulation was achieved with Angiomax. Patient was preloaded with Angiomax IV 10 ml. [place]erc[place] [address] CARDIAC CATH REPORT Name: DARY DE JESUS Room: [address] M.RPam#: [id number] Admission: 01/16/21 Attend Phys: Veto Alvarez MD, Discharge: Date of : 35 Report #: [id number] performed on the ostial- proximal right coronary artery. The lesion stenosis prior to intervention was 80% with HAYES 3 flow. A 6F 3DRC Guide Catheter was used to engage the right ostium. A BMW 190cm Interventional Guidewire was used to cross the lesion. BALLOON DILATION A Balloon catheter Trek RX 2.5 X 8 was inserted and inflated up to 16.00atm for 12seconds. A Balloon catheter Trek RX 3.0 x 8 was inserted and inflated up to 14 lisa for 10 seconds. STENT DEPLOYMENT A drug-eluting stent Antonio RX Stent 3.0X8mm was inserted and inflated up to 15.00atm for 10seconds. Additional Inflation: 17.00atm for 10seconds. POST STENT DEPLOYMENT BALLOON DILATION A Balloon catheter NC Trek RX 3.25X8 was inserted and inflated up to 16.00atm for 12seconds. Additional Inflation: 17.00atm for 8seconds. Final angiography reveals 0 % stenosis with HAYES 3 flow. COMMENTS The PCI was technically complex by virtue of the aorto- ostial location of the right coronary stenosis Conclusion 1. Significant coronary artery disease characterized by the following: A 30% proximal and mid LAD narrowing with 50% distal narrowing B 30% tubular narrowing in the proximal portion of the nondominant circumflex C dominant right coronary artery with 80% focal ostial- proximal stenosis and 40% mid vessel narrowing 2. Normal left ventricular systolic function, estimated ejection fraction being 60-65% 3. Normal left-sided hemodynamic study 4. Successful PCI with deployment of a drug[place] [address] CARDIAC CATH REPORT Name: DARY DE JESUS Room: [address] Carlos Alberto M.R.#: [id number] Admission: 01/16/21 Attend Phys: Veto Alvarez MD, Discharge: Date of : 35 Report #: [id number] site of 80% ostial proximal right coronary stenosis with 0% residual narrowing and HAYES-3 flow to the distal vessel Recommendations Cardiac Risk Reduction Program Aggressive Medical Therapy Medications Administered Aspirin (any) Clopidogrel Diagnostic Cath Approved by: Veto Alvarez MD Date/Time: 01/16/2021 13:21:51 <ELECTRONICALLY SIGNED> By: Veto Alvarez MD, [facility] 01/16/21 1323 1323 1323Veto Alvarez MD, [facility] /INF
--- NOTE | 2021-01-16 14:31 | EKG ---
[place] [address] ELECTROCARDIOGRAM REPORT Name: DARY DE JESUS Room: [address] M.R.#: [id number] Admission: 01/16/21 Attend Phys: Isidra Torrez Discharge: Date of : 35 Date of Service: 01/16/21 1105 Report #: [id number] THIS REPORT FOR: //name// [facility] Test Date: 2021-01-16 Test Time: 11:05:32 Pat Name: DARY DE JESUS Department: Room: [facility] Gender: F Kettle Cook: : 1935 Requested By: Veto Alvarez Order Number: [id number] Reading MD: Veto Alvarez Measurements Intervals [place] Rate: 76 P: 25 [place]: 186 QRS: -23 QRSD: 84 T: 6 QT: 429 QTc: 483 Interpretive Statements Sinus rhythm Abnormal R-wave progression, early transition Inferior infarct, old Compared to ECG 01/16/2021 08:36:07 Sinus pause or arrest no longer present Myocardial infarct finding still present Electronically Signed On 01-16-2021 14:31:00 CDT by Veto Alvarez [email or web address] <ELECTRONICALLY SIGNED> By: Veto Alvarez MD, [facility] 01/16/21 1431 1105 1105 Veto Alvarez MD, FAC /EPI
--- NOTE | 2021-01-16 15:23 | NUR ---
A&OX 4, PWD. PT LUNGS CLEAR. HEART TONES REG. SR ON MONITOR. +BS X 4 QUAD. ATE APPROX. 60% OF LUNCH. ON BEDREST AND TO LAY FLAT UNTIL 1630. RIGHT GROIN SITE DRESSING DRY AND INTACT. 2+ PEDAL PULSES. NO C/O PAIN. USING BED RANGEL TO URINATE. BED ALARM ON FOR SAFETY. WILL CONTINUE TO MONITOR.
--- NOTE | 2021-01-16 21:58 | NUR ---
ASSUMED CARE OF PT. AROUND 1730 FROM [facility]. PT. AOX4, VSS, DENIES PAIN OR DISCOMFORT, CALL LIGHT AND PERSONAL BELONGINGS PLACED WITHIN REACH. AGREE WITH ASSESSMENT AND SCREENING IN THE SYTEM FROM PREVIOUS NURSE. ASSISTED PT. TO BED SIDE COMMOEDE, R GROIN CATH SITE CDI, NO HEMATOMA NOTED. PT. DENIES CHEST DISCOMFORT, PLEASANT AFFECT, RESTING IN BED WATCHING TV AT THIS TIME.
[2021-01-17] VITALS: BP 119/59
[2021-01-17 04:00] VITALS: BP 173/76
[2021-01-17 08:26] LABS: HEMATOCRIT 31.7 % (37.0-47.0); HEMOGLOBIN 11.3 gm/dL (12.0-15.0); MCH 33.6 pg (26.0-34.0); MCHC 35.8 g/dL (28.0-37.0); MCV 93.8 fL (80.0-100.0); MPV 7.6 fl. (7.2-11.1); RBC 3.38 mil/uL (4.20-5.00); RDW-CV 14.2 % (10.5-14.5); WBC 4.6 thou/uL (4.0-11.0)
[2021-01-17 08:30] VITALS: BP 147/67
--- NOTE | 2021-01-17 08:46 | NUR ---
PATIENT HAS SLEPT WELL THROUGOUT THE NIGHT. VSS ON RA. MEDICATIONS GIVEN ORDERED AND CHARTED. DRESSING TO RIGHT GROIN IS C/D/I. ASSESSMENT CHARTED. IV IN RIGHT AC-NS @ 75ML/HR. HOURLY ROUNDS MADE. WILL CONTINUE WITH PLAN OF CARE AND NURSING TO MONITOR.
[2021-01-17 08:56] LABS: ALBUMIN 2.3 g/dL (3.4-5.0); CALCIUM 7.6 mg/dL (8.5-10.1); CREATININE 1.1 mg/dL (0.6-1.3); POTASSIUM 3.7 mmol/L (3.5-5.1); TOTAL BILIRUBIN 1.1 mg/dL (<0.1-1.0); TOTAL PROTEIN 5.1 g/dL (6.4-8.2); TROPONIN-I LEVEL 0.27 ng/mL (<0.06)
[2021-01-17 10:48] VITALS: BP 147/67
[2021-01-17 12:00] VITALS: BP 170/74
== END 2021-01-17 13:15 | disposition home or self-care (01) ==
LOC: M.CL 07:54 → M.TBA-CV 10:17 → M.2W 10:17 → M.TBA-CV 10:17 → M.2W 11:26
PROVIDERS: ADMIT Internal Medicine; ATTEND Internal Medicine
DX: I25.110 Atherosclerotic heart disease of native coronary artery with unstable angina pectoris (principal); I10 Essential (primary) hypertension; E78.5 Hyperlipidemia, unspecified; I48.0 Paroxysmal atrial fibrillation; Z79.82 Long term (current) use of aspirin; Z79.899 Other long term (current) drug therapy; Z86.73 Personal history of transient ischemic attack (TIA), and cerebral infarction without residual deficits

== ENCOUNTER 2021-06-13 12:59 | Observation (INO) | payer OTHER, MEDICAID ==
[~2021-06-13] VITALS: Ht 147.3 cm; Wt 67.5 kg
[2021-06-13 13:08] VITALS: BP 174/108
[2021-06-13 13:31] LABS: URINE BILIRUBIN NEGATIVE (Negative); URINE BLOOD 1+ (Negative); URINE CLARITY CLEAR; URINE COLOR YELLOW; URINE GLUCOSE-RANDOM NEGATIVE (Negative); URINE KETONES NEGATIVE (Negative); URINE LEUKOCYTES-REFLEX NEGATIVE (Negative); URINE NITRITE-REFLEX NEGATIVE (Negative); URINE PROTEIN NEGATIVE (Negative); URINE SPECIFIC GRAVITY 1.015 (1.005-1.030)
[2021-06-13 13:40] LABS: BACTERIA-REFLEX None Seen /HPF (None Seen); CRYSTALS None Seen /LPF (None Seen); SQUAMOUS 4-10 Moderate /LPF (0-3); URINE RBC 3-10 Few /HPF (0-2)
[2021-06-13 13:55] LABS: ABSOLUTE EOSINOPHILS 0.3 thou/uL (0.0-0.7); ABSOLUTE LYMPHOCYTES 1.5 thou/uL (0.8-5.3); ABSOLUTE MONOCYTES 0.5 thou/uL (0.0-1.2); ABSOLUTE NEUTROPHILS 2.4 thou/uL (1.6-8.1); EOSINOPHILS 5.5 %; HEMATOCRIT 34.7 % (37.0-47.0); HEMOGLOBIN 11.9 gm/dL (12.0-15.0); LYMPHOCYTES 32.5 %; MCH 31.6 pg (26.0-34.0); MCHC 34.3 g/dL (28.0-37.0); MCV 92.2 fL (80.0-100.0); MONOCYTES 9.7 %; MPV 7.9 fl. (7.2-11.1); NUCLEATED RBCS 0 /100WBC; PLATELET COUNT* 173 thou/uL (150-400); POLYS 51.3 %; RBC 3.77 mil/uL (4.20-5.00); RDW-CV 14.1 % (10.5-14.5); WBC 4.7 thou/uL (4.0-11.0)
[2021-06-13 14:05] LABS: CALCIUM 8.3 mg/dL (8.5-10.1); CREATININE 1.2 mg/dL (0.6-1.3); POTASSIUM 3.8 mmol/L (3.5-5.1)
[2021-06-13 14:09] LABS: ALBUMIN 2.7 g/dL (3.4-5.0); TOTAL BILIRUBIN 0.7 mg/dL (<0.1-1.0); TOTAL PROTEIN 6.1 g/dL (6.4-8.2)
--- NOTE | 2021-06-13 19:14 | NUR ---
SPOKE TO DR LUU REGARDING TROPONINS. PATIENT IS TO RECIEVE NIGHTLY LOVENOX
[2021-06-13 19:47] VITALS: BP 175/75
[2021-06-13 20:00] VITALS: BP 120/81
[2021-06-14] VITALS (7 sets, daily range): BP systolic 88–177; BP diastolic 52–87
--- NOTE | 2021-06-14 03:36 | NUR ---
PT ADMIT TO 220 AT 1999. ALERT ORIENTED. UP WITH ASSIST OF ONE. INITAL REFUSAL TO WEAR TELEMETRY UNTIL HPOALLERGENIC PATCHS WERE PROVIDED. MAJOR GIFTS DIRECTOR TRACING SR.
[2021-06-14 06:11] LABS: ABSOLUTE BASOPHILS 0.1 thou/uL (0.0-0.2); ABSOLUTE EOSINOPHILS 0.3 thou/uL (0.0-0.7); ABSOLUTE LYMPHOCYTES 1.5 thou/uL (0.8-5.3); ABSOLUTE MONOCYTES 0.5 thou/uL (0.0-1.2); ABSOLUTE NEUTROPHILS 1.9 thou/uL (1.6-8.1); BASOPHILS 1.3 %; EOSINOPHILS 6.6 %; HEMATOCRIT 34.2 % (37.0-47.0); HEMOGLOBIN 11.6 gm/dL (12.0-15.0); LYMPHOCYTES 35.4 %; MCH 31.6 pg (26.0-34.0); MCV 92.7 fL (80.0-100.0); MONOCYTES 10.9 %; MPV 8.3 fl. (7.2-11.1); NUCLEATED RBCS 0 /100WBC; PLATELET COUNT* 164 thou/uL (150-400); POLYS 45.8 %; RBC 3.69 mil/uL (4.20-5.00); RDW-CV 14.1 % (10.5-14.5); WBC 4.1 thou/uL (4.0-11.0)
[2021-06-14 06:19] LABS: CREATININE 1.2 mg/dL (0.6-1.3); POTASSIUM 3.4 mmol/L (3.5-5.1)
--- NOTE | 2021-06-14 07:10 | NUR ---
CHANGE OF SHIFT REPORT GIVEN PATIENT SEEN AT BEDSIDE, IN BED ASLEEP ASSUMED PATIENT CARE
--- NOTE | 2021-06-14 11:07 | EKG ---
[place] [address] ELECTROCARDIOGRAM REPORT Name: DARY DE JESUS Room: [address] ADM IN .R.#: [id number] Admission: 06/13/21 Attend Phys: Ehsan Blandon, Discharge: Date of : 35 Date of Service: 06/13/21 1330 Report #: [id number] THIS REPORT FOR: //name// [facility] ED Test Date: 2021-06-13 Test Time: 13:30:47 Pat Name: DARY DE JESUS Department: Room: [facility] Gender: F Alloy Weigher: YOON : 1935 Requested By: Juan R Martinez Order Number: [id number] MD: Anthony Donahue Measurements Intervals [place] Rate: 53 P: 20 AL: 173 QRS: -10 QRSD: 85 T: 15 QT: 460 QTc: 432 Interpretive Statements Sinus arrhythmia Low voltage, precordial leads Abnormal R-wave progression, early transition Borderline repolarization abnormality Compared to ECG 01/16/2021 11:05:32 Low QRS voltage now present Sinus rhythm no longer present Myocardial infarct finding no longer present Electronically Signed On 06-14-2021 11:07:40 MANAGER TALENT by Anthony Donahue [email or web address] <ELECTRONICALLY SIGNED> By: Brianne Donahue MD, [facility] 06/14/21 1107 29 1330 Brianne Donahue MD, [facility] /EPI
--- NOTE | 2021-06-14 19:30 | NUR ---
RECEIVED REPORT AND ASSUMED CARE OF PT, ASSESSMENT COMPLETED. PT SLEEPING BUT EASILY AWAKENED FOR CARE. TELEMETRY ON SHOWING SR WITH 1ST AVB OR SB WHEN RESTING. NO COMPLAINTS VOICED. WILL CONT TO MONITOR AND ASSIST NEEDED.
[2021-06-15] VITALS (8 sets, daily range): BP systolic 133–182; BP diastolic 62–79
--- NOTE | 2021-06-15 06:34 | NUR ---
SLEPT WELL TONIGHT. GAIT STEADY BUT SLOW TO THE BR AND BACK. DENIES SYNCOPAL FEELING. TELEMETRY SHOWING SB WITH RATE INTO 50'S. HS GOALS OF REST AND SAFETY ACHIEVED.
--- NOTE | 2021-06-15 15:58 | NUR ---
CM SPOKE TO PT'S DTR TO DISCUSS D/C PLANNING. PT RESIDES AT HOME WITH DTR AND AND SHE PROVIDES 24/ CARE FOR HER. PT INDEPENDENT WITH MOBILITY. PT'S DTR PLANS FOR THE PT TO RETURN HOME WITH HER AT D/C AND SHE DECLINED HH. RN AND PHYSICIAN INFORMED. CM WILL REMAIN AVAILABLE TO ASSIST AND FOLLOW NEEDED.
--- NOTE | 2021-06-15 16:07 | NUR ---
ASSUMED CARE OF PT AT 0730. PT A&0X4, DENIES ANY PAIN OR SHORTNESS OF BREATH AT THIS TIME. TRACING SB/SR ON THE HOME DAY CARE PROVIDER. RATE IN THE 50'S. ON RA SAT UPPER 90'S. PT UP SBA TO BATHROOM. CARDIO CONSULT IN PLACE. OK TO DC PER CARDIOLOGY. ORTHOSTATS COMPLETED-REFER TO CHARTING. DISCHARGE ORDERS RECEIVED. DISCHARGE INSTRUCTIONS, CARE NOTES AND FOLLOW UP APPTS GIVEN TO PT. PT COMMUNICATES UNDERSTANDING OF DISCHARGE TEACHING. IV AND HOME DAY CARE PROVIDER REMOVED. PT DISCHARGED WITH ALL BELONGINGS AND PAPERWORK VIA WHEELCHAIR WITH NURSING STAFF TO DAUGHTER OWN PERSONAL VEHICLE. PT REFUSED HOME WITH HOME HEALTH. EDUCATION GIVEN.
--- NOTE | 2021-06-16 07:45 | CON ---
[address] [address] CONSULTATION Name: DARY DE JESUS Room: [address] [place] Alberto Read#: [id number] Admission: 06/13/21 Attend Phys: Ehsan Blandon MD Discharge: 06/15/21 Date of : 35 Report #: [id number] THIS REPORT FOR: cc: ADAL REHMAN,Brianne Cota MD [facility] ~ DATE OF CONSULTATION: 06/14/2021 CARDIOLOGY CONSULTATION HISTORY OF PRESENT ILLNESS: I was asked by Dr. Blandon to see this 86-year-old white female in Cardiology consultation for an elevated troponin. This lady was admitted with dizziness and urinary retention. She does have a history of coronary artery disease. She has had 5 stents. She had a troponin drawn for unclear reasons. She has not had any chest pain, angina, shortness of breath, dyspnea on exertion, or any symptoms to suggest myocardial ischemia. Her EKG shows sinus bradycardia with sinus arrhythmia, heart rate was 53. There is early transition in the precordial R-wave and there is a lot of motion artifact. Otherwise, it is a fairly normal EKG. There were no acute ischemic changes. Her initial troponin was 107 at approximately 4:00 yesterday afternoon, another one drawn at approximately 5:00 this morning was 112. These are the supersensitive troponins. Those corresponded to 0.107 and 0.112 of the old troponin method. Additionally, this lady has essential hypertension, hyperlipidemia, diastolic dysfunction, history of a CVA and hypothyroidism. Her dizziness has been going on for quite some time and it is clearly orthostatic. She gets it when she gets out of bed and she gets it when she stands up. She is on multiple medications that would do that including isosorbide mononitrate, metoprolol and lisinopril. They will all cause orthostatic hypotension. She feels fairly well today. She has been having difficulty urinating and she apparently has been documented to have incomplete bladder emptying on imaging studies done at the hospital. PAST MEDICAL HISTORY: As described above. ALLERGIES: She has no known allergies. MEDICATIONS: Include the above medications, isosorbide 30 mg daily, pantoprazole 40 mg daily, atorvastatin 10 mg daily, levothyroxine 88 mcg daily, she takes multivitamin daily, takes vitamin D 2000 units daily, metoprolol succinate 50 mg daily, p.r.n. nitroglycerin, which she has not had to use, aspirin 81 mg daily and lisinopril 20 mg daily. REVIEW OF SYSTEMS: Unremarkable except as in the history of present illness. Please see our review of systems form for details of 45 different complaints in 14 different system categories [place] [address] CONSULTATION Name: DARY DE JESUS Room: [address] [place] Read#: [id number] Admission: 06/13/21 Attend Phys: Ehsan Blandon MD Discharge: 06/15/21 Date of : 35 Report #: [id number] SOCIAL HISTORY: She does not smoke, drink or use illegal drugs. FAMILY HISTORY: Remarkable for history of coronary artery disease. PHYSICAL EXAMINATION: GENERAL: She presents as a well-developed, well-nourished white female in no acute distress. VITAL SIGNS: Her pulse is 76 and regular, blood pressure is 177/64 earlier this morning. Her temperature was 37 degrees, pulse was 57 and regular. HEENT: Her head was atraumatic. Eyes are clear. NECK: Supple. There is no jugular venous distention or hepatojugular reflux. Thyroid is not enlarged. There is no adenopathy. SKIN: Warm and dry. Mucous membranes are moist. LUNGS: Clear to auscultation and percussion. HEART: Revealed normal first and second heart sound. There is soft S4. There is no S3. There are no murmurs, rubs, thrills, heaves or gallops. PMI is nondisplaced. ABDOMEN: Soft, flat, nontender, no palpable masses and no organomegaly. EXTREMITIES: Reveal no cyanosis, clubbing or edema. NEUROLOGIC: The patient mentated normally, talked normally, moved all extremities normally. IMPRESSION: 1. Elevated troponin that likely is simply mildly chronically elevated in this elderly woman. 2. Coronary artery disease. 3. Status post 5 coronary stents. 4. Essential hypertension. 5. Hyperlipidemia. 6. Status post cerebrovascular accident. 7. Orthostatic hypotension, likely secondary to medications. 8. Hypothyroidism. 9. Diastolic dysfunction. 10. Urinary retention that is apparently acute on chronic. RECOMMENDATIONS: At this point, I would decrease her lisinopril. If necessary, some of her other medicines can be decreased. Additionally, I would decrease her Imdur. I would repeat another troponin today at about 4:00. I would check an echo. If there is a significant downward trending of her troponin at 4:00, I would consider a Lexiscan Cardiolite stress test in the future. This elevation is minimal and at most, she has had a type 2 infarct, but given the history of more likely to suspect she just has a mild chronic troponin elevation. [address] [place] [address] CONSULTATION Name: DARY DE JESUS Room: [address] Carlos Alberto IrwinRPam#: [id number] Admission: 06/13/21 Attend Phys: Ehsan Blandon MD Discharge: 06/15/21 Date of : 35 Report #: [id number] Thank you very much for asking me to see the patient. If there are any questions, please feel free to contact me. <ELECTRONICALLY SIGNED> By: Brianne Donahue MD, FACC 06/16/21 0745 [id number]. Anthony Donahue MD, FACC /nt
== END 2021-06-15 16:11 | disposition home health service (06) ==
LOC: M.ERS 12:59 → M.TBA-ER 15:42 → M.2W 15:42
PROVIDERS: Emergency Medicine Emergency Medical Services; ADMIT Internal Medicine; ATTEND Internal Medicine
DX: R77.8 Other specified abnormalities of plasma proteins (principal); Z20.822 Contact with and (suspected) exposure to COVID-19; I25.10 Atherosclerotic heart disease of native coronary artery without angina pectoris; I16.0 Hypertensive urgency; E78.5 Hyperlipidemia, unspecified; R42 Dizziness and giddiness; I48.20 Chronic atrial fibrillation, unspecified; I25.2 Old myocardial infarction; I11.0 Hypertensive heart disease with heart failure; I50.30 Unspecified diastolic (congestive) heart failure; E03.9 Hypothyroidism, unspecified; R33.9 Retention of urine, unspecified; Z79.82 Long term (current) use of aspirin; Z79.899 Other long term (current) drug therapy; Z86.73 Personal history of transient ischemic attack (TIA), and cerebral infarction without residual deficits; Z95.818 Presence of other cardiac implants and grafts